=== PATIENT | female | born 1930 | race Caucasian/White ===

== ENCOUNTER 2017-03-10 01:12 | Inpatient (IN) | payer MEDICARE, MEDICAID ==
[2017-03-10] VITALS (7 sets, daily range): BP systolic 128–163; BP diastolic 74–90
[~2017-03-10] VITALS: Ht 160 cm; Wt 55.3 kg
[2017-03-10] MEDS ORDERED: CALCIUM CARBON260 MG PO (01:19)
[2017-03-10] MEDS ORDERED: ROCALTROL0.25 MCG PO (01:19)
[2017-03-10] MEDS ORDERED: CATAPRES0.1 MG TD (01:19)
[2017-03-10] MEDS ORDERED: CEFUROXIME250 MG PO (01:19)
[2017-03-10] MEDS ORDERED: PENTOXIFYLLINE400 MG ORAL (01:19)
[2017-03-10] MEDS ORDERED: MULTIVITAMINS1 EAC2 ORAL (01:19)
[2017-03-10] MEDS ORDERED: METRONIDAZOLE500 MG ORAL (01:19)
--- NOTE | 2017-03-10 01:28 | Emergency Room Report ---
History of Present Illness General Chief Complaint: Dyspnea/Respdistress Source: Medical Record Present Illness HPI This is an 86-year-old female with a history of swallowing difficulty and dementia. She was at a senior living. According to EMS, her baseline is she's confused but able to hold conversation. She was brought in for chief complaint of rest or distress. Onset tonight. According to nursing staff, she was given water and candy by her roommate. Afterward she became short of breath. No known fever or chills. No nausea no vomiting. No diarrhea. History is limited other than what was told by EMS. Allergies: Coded Allergies: ASPIRIN (Verified Allergy, Unknown, 03/10/17) IBUPROFEN (Unverified Allergy, Unknown, 03/10/17) Patient History Past Medical History: see triage record, old chart reviewed Past Surgical History: other Pertinent Family History: none Social History: Denies: smoking Last Menstrual Period: years Now: No Immunizations: other Reviewed Nursing Documentation: PMH: Agreed, PSxH: Agreed Nursing Documentation-PMH Past Medical History: No History, Except For History Of Psychiatric Problem: Yes - ALANNA MCMILLAN Review of Systems Eye: Denies: eye pain, blurred vision ENT: Denies: ear pain, nose congestion, throat swelling Respiratory: Reports: cough, shortness of breath Cardiovascular: Denies: chest pain, palpitations Gastrointestinal: Denies: abdominal pain, diarrhea, nausea, vomiting Musculoskeletal: Denies: back pain, joint pain Skin: Denies: rash Neurological: Denies: headache, numbness Endocrine: Denies: increased thirst, increased urine Hematologic/Lymphatic: Denies: easy bruising All Other Systems: negative except mentioned in HPI Physical Exam Vital Signs Date Time Temp Pulse Resp B/P (MAP) Pulse Ox O2 Delivery O2 Flow Rate FiO2 03/10/17 01:03 132 177/100 95 Non-Rebreather vitals tachycardia and hypertension. Sp02 EP Interpretation: abnormal General Appearance: moderate distress, lethargic, thin, Chronically Ill Head: normocephalic, atraumatic Eyes: bilateral eye PERRL, bilateral eye EOMI ENT: hearing grossly normal, normal pharynx Neck: full range of motion, supple, no meningismus Respiratory: chest non-tender, normal breath sounds, respiratory distress, rhonchi Cardiovascular #1: regular rate, rhythm, no murmur, tachycardia Gastrointestinal: normal bowel sounds, non tender, no mass, no organomegaly, no bruit, non-distended Musculoskeletal: back normal, normal range of motion Neurologic: grossly normal Skin: warm/dry Procedures Critical Care Time Critical Care Time Critical care is mandated in this patient who presented with sepsis from pneumonia. Patient require my urgent intervention to attenuate the risks of metabolic collapse which may lead to cardiovascular collapse and . Critical care time is 35 minutes excluding any reportable procedure. Critical care time included evaluation, multiple reevaluation, looking at old charts, interpreting laboratory and diagnostic data, discussing case with patient and family and consultants, and charting. Medical Decision Making Diagnostic Impression: Primary Impression: Sepsis Qualified Codes: A41.9 - Sepsis, unspecified organism Additional Impressions: Pneumonia Qualified Codes: J18.9 - Pneumonia, unspecified organism Respiratory failure with hypoxia Qualified Codes: J96.01 - Acute respiratory failure with hypoxia Proteinuria Qualified Codes: R80.9 - Proteinuria, unspecified ACS (acute coronary syndrome) ER Course Patient presents with acute respiratory failure secondary to pneumonia. Maybe aspiration. She require BiPAP. Mental status is much improved. She able to converse now. IV fluid antibiotics given. Her troponin is in the indeterminate zone. This is probably secondary to demand ischemia. Aspirin given. Admit. Laboratory Tests Test 03/10/17 01:15 03/10/17 01:18 03/10/17 01:28 White Blood Count 21.4 K/UL (4.8-10.8) H Red Blood Count 4.03 M/UL (4.20-5.40) L Hemoglobin 12.4 G/DL (12.0-16.0) Hematocrit 39.2 % (37.0-47.0) Mean Corpuscular Volume 97 FL (80-99) Mean Corpuscular Hemoglobin 30.8 PG (27.0-31.0) Mean Corpuscular Hemoglobin Concent 31.6 G/DL (32.0-36.0) L Red Cell Distribution Width 15.7 % (11.6-14.8) H Platelet Count 547 K/UL (150-450) H Mean Platelet Volume 5.7 FL (6.5-10.1) L Neutrophils (%) (Auto) % (45.0-75.0) Lymphocytes (%) (Auto) % (20.0-45.0) Monocytes (%) (Auto) % (1.0-10.0) Eosinophils (%) (Auto) % (0.0-3.0) Basophils (%) (Auto) % (0.0-2.0) Differential Total Cells Counted 100 Neutrophils % (Manual) 64 % (45-75) Lymphocytes % (Manual) 25 % (20-45) Monocytes % (Manual) 7 % (1-10) Eosinophils % (Manual) 1 % (0-3) Basophils % (Manual) 1 % (0-2) Band Neutrophils 2 % (0-8) Platelet Estimate Adequate Platelet Morphology Normal Red Blood Cell Morphology Normal Prothrombin Time 10.4 SEC (9.30-11.50) Prothromb Time International Ratio 1.0 (0.9-1.1) Activated Partial Thromboplast Time 32 SEC (23-33) Sodium Level 134 MMOL/L (136-145) L Potassium Level 3.7 MMOL/L (3.5-5.1) Chloride Level 103 MMOL/L (98-107) Carbon Dioxide Level 24 MMOL/L (21-32) Anion Gap 7 mmol/L (5-15) Blood Urea Nitrogen 22 mg/dL (7-18) H Creatinine 1.1 MG/DL (0.55-1.30) Estimat Glomerular Filtration Rate mL/min (>60) Glucose Level 238 MG/DL (74-106) H Calcium Level 8.6 MG/DL (8.5-10.1) Total Bilirubin 0.1 MG/DL (0.2-1.0) L Aspartate Amino Transf (AST/SGOT) 31 U/L (15-37) Alanine Aminotransferase (ALT/SGPT) 13 U/L (12-78) Alkaline Phosphatase 112 U/L (46-116) Total Creatine Kinase 33 U/L (26-308) Creatine Kinase MB 2.6 NG/ML (0.0-3.6) Creatine Kinase MB Relative Index 7.8 Troponin I 0.453 ng/mL (0.000-0.056) Total Protein 7.0 G/DL (6.4-8.2) Albumin 1.9 G/DL (3.4-5.0) L Globulin 5.1 g/dL Albumin/Globulin Ratio 0.4 (1.0-2.7) L Lactic Acid Level 1.80 mmol/L (0.66-2.22) Urine Color Yellow Urine Appearance Slightly cloudy Urine pH 5 (4.5-8.0) Urine Specific [place] 1.020 (1.005-1.035) Urine Protein 2+ (NEGATIVE) H Urine Glucose (UA) Negative (NEGATIVE) Urine Ketones Negative (NEGATIVE) Urine Occult Blood 2+ (NEGATIVE) H Urine Nitrite Negative (NEGATIVE) Urine Bilirubin Negative (NEGATIVE) Urine Urobilinogen Normal MG/DL (0.0-1.0) Urine Leukocyte Esterase 1+ (NEGATIVE) H Urine RBC 2-4 /HPF (0 - 2) H Urine WBC 0-2 /HPF (0 - 2) Urine Squamous Epithelial Cells Occasional /LPF Urine Calcium Oxalate Crystals Occasional /LPF (NONE) Urine Amorphous Sediment Few /LPF (NONE) H Urine Bacteria Few /HPF (NONE) Urine Mucus Few /LPF (NONE/OCC) H Lab Results Impression labs with elevated white count EKG Diagnostic Results Rate: tachycardiac Rhythm: other - Nonspecific ST changes Rhythm Strip Diag. Results Rhythm Strip Time: 01:28 EP Interpretation: yes Rate: 120 Rhythm: NSR Chest X-Ray Diagnostic Results Chest X-Ray Diagnostic Results : Chest X-Ray Ordered: Yes # of Views/Limited/Complete: 1 View Indication: Shortness of Breath EP Interpretation: Yes Interpretation: no pneumothorax, other - Bilateral infiltrates, right greater than left. Possible pleural effusion. Impression: Other - Pneumonia Electronically Signed by: Electronically signed by Rahul Johnston MD Last Vital Signs Date Time Temp Pulse Resp B/P (MAP) Pulse Ox O2 Delivery O2 Flow Rate FiO2 03/10/17 01:03 132 177/100 95 Non-Rebreather Status: improved Disposition: ADMITTED INPATIENT Condition: Critical RAHUL JOHNSTON M.D. Mar 10, 2017 01:28
[2017-03-10] MEDS ORDERED: Albuterol ud Inhalation HHN ONE (01:30)
[2017-03-10 01:41] LABS: APPEARANCE,URINE SLIGHTLY CLOUDY; BILIRUBIN, URINE NEGATIVE (NEGATIVE); GLUCOSE, URINE (UA) NEGATIVE (NEGATIVE); KETONES,URINE NEGATIVE (NEGATIVE); LEUKOCYTE ESTERASE ,URINE 1+ (NEGATIVE); NITRITE,URINE NEGATIVE (NEGATIVE); PH,URINE 5 (4.5-8.0); PROTEIN,URINE 2+ (NEGATIVE); UROBILINOGEN,URINE NORMAL MG/DL (0.0-1.0)
[2017-03-10 01:42] LABS: HEMATOCRIT 39.2 % (37.0-47.0); HEMOGLOBIN 12.4 G/DL (12.0-16.0); MEAN CORPUSCULAR VOLUME 97 FL (80-99); PLATELET COUNT 547 K/UL (150-450); RED BLOOD COUNT 4.03 M/UL (4.20-5.40); RED CELL DISTRIBUTION WIDTH 15.7 % (11.6-14.8); WHITE BLOOD COUNT 21.4 K/UL (4.8-10.8)
[2017-03-10 01:42] LABS: COLOR,URINE YELLOW
[2017-03-10 02:09] LABS: ALANINE AMINOTRANSFERASE 13 U/L (12-78); ALBUMIN 1.9 G/DL (3.4-5.0); ALBUMIN/GLOBULIN RATIO 0.4 (1.0-2.7); ALKALINE PHOSPHATASE 112 U/L (46-116); ANION GAP 7 mmol/L (5-15); ASPARTATE AMINO TRANSFERASE 31 U/L (15-37); BILIRUBIN,TOTAL 0.1 MG/DL (0.2-1.0); BLOOD UREA NITROGEN 22 mg/dL (7-18); CALCIUM 8.6 MG/DL (8.5-10.1); CARBON DIOXIDE 24 MMOL/L (21-32); CHLORIDE 103 MMOL/L (98-107); CKMB 2.6 NG/ML (0.0-3.6); CREATINE KINASE 33 U/L (26-308); CREATININE 1.1 MG/DL (0.55-1.30); POTASSIUM 3.7 MMOL/L (3.5-5.1); SODIUM 134 MMOL/L (136-145)
[2017-03-10] MEDS ORDERED: Piperacillin/Tazobactam 4.5 GM in NS 110 ML IVPB ONE (02:15)
[2017-03-10] MEDS ORDERED: Zosyn 4.5gm inj ONE (02:18)
[2017-03-10] MEDS ORDERED: Nitroglycerin Subl 0.4mg tab SL PRN (04:45)
[2017-03-10] MEDS ORDERED: Albuterol/Ipratropium 3ml neb HHN PRN (04:45)
[2017-03-10] MEDS ORDERED: Mylanta II UD 30ml ORAL PRN (04:45)
[2017-03-10] MEDS ORDERED: Promethazine/Codeine 5ml UD ORAL PRN (04:45)
[2017-03-10] MEDS ORDERED: Miralax 17gm pkt ORAL PRN (04:45)
[2017-03-10] MEDS ORDERED: Vancomycin 1gm/D5W 275ml IVPB SCH ×2 (06:00)
[2017-03-10] MEDS ORDERED: Vancomycin 1gm inj IVPB ONE (06:46)
[2017-03-10] MEDS ORDERED: Cefepime HCl 1 GM in D5W 55 ML IV SCH (09:00)
[2017-03-10] MEDS: Cefepime 2gm in D5W 110ml IVPB SCH (09:00)
[2017-03-10] MEDS: Heparin 5000 units/ml inj SUBQ SCH ×2 (09:30→21:12)
--- NOTE | 2017-03-10 12:01 | Diagnostic Imaging Report ---
Indication: SOB Technique: One view of the chest Comparison: none Findings: There is extensive bilateral interstitial and alveolar pulmonary parenchymal opacity diffusely. There are large bilateral pleural effusions. The heart size is difficult to assess, probably normal there is there is thoracolumbar scoliotic deformity. There is a left shoulder prosthesis. There are degenerative changes of the right shoulder. Impression: Severe bilateral diffuse mixed interstitial and alveolar pulmonary parenchymal disease. Infiltrates versus edema. Correlate with clinical findings Bilateral pleural effusions Other findings as described
--- NOTE | 2017-03-10 13:57 | Consultation ---
Consult Note Consult Note ID # [id number] GIAN PATRICIA M.D. Mar 10, 2017 13:57
--- NOTE | 2017-03-10 13:57 | Consultation ---
Consult Note Consult Note ID # [id number] GIAN PATRICIA M.D. Mar 10, 2017 13:57
--- NOTE | 2017-03-10 13:57 | Consultation ---
Consult Note Consult Note ID # [id number] GIAN PATRICIA M.D. Mar 10, 2017 13:57
--- NOTE | 2017-03-10 13:59 | History and Physical ---
History of Present Illness General Date patient seen: Mar 10, 2017 Reason for Hospitalization: Dyspnea/Respdistress Present Illness HPI 86-year-old female with a history of diastolic CHF, PVD, HTN dementia recently hospitalized at [facility] with ALOC and sepsis, [facility]. She was brought in for chief complaint of respiratory distress. According to nursing staff, she was given water and candy by her roommate. Afterward she became short of breath. No known fever or chills. No nausea no vomiting. No diarrhea. Pt was in respiratory failure in ER and was put on BIPAP and transferred to [facility] for further treatment. She is awake, comfortable and confused. Allergies: Coded Allergies: ASPIRIN (Verified Allergy, Unknown, 03/10/17) IBUPROFEN (Unverified Allergy, Unknown, 03/10/17) Medication History Scheduled Calcitriol (Rocaltrol), 0.25 MCG PO BID, (Reported) Cefuroxime Axetil* (Cefuroxime*), 250 MG PO Q12HR, (Reported) Clonidine Hcl* (Catapres*), 0.1 MG TD EVERY 6 HOURS, (Reported) Metronidazole* (Flagyl*), 500 MG ORAL EVERY 8 HOURS, (Reported) Multivitamins* (Multivitamins*), 1 TAB ORAL DAILY, (Reported) Pentoxifylline* (Trental*), 400 MG ORAL BID, (Reported) Miscellaneous Medications Calcium Carbonate (Calcium Carbonate), 200 MG PO, (Reported) Patient History Healthcare decision maker Resuscitation status Full Code Advanced Directive on File No Past Medical/Surgical History Past Medical/Surgical History: (1) Alzheimer's dementia (2) Diastolic CHF Review of Systems All Other Systems: negative except mentioned in HPI Physical Exam General Appearance: WD/WN, no apparent distress Lines, tubes and drains: peripheral HEENT: normocephalic, atraumatic Neck: non-tender, normal alignment Respiratory/Chest: chest wall non-tender, lungs clear Cardiovascular/Chest: normal peripheral pulses, normal rate Abdomen: normal bowel sounds, non tender, no mass Genitourinary/Rectal: normal genital exam, normal rectal exam Extremities: normal range of motion Neurologic: no motor/sensory deficits Last 24 Hour Vital Signs Date Time Temp Pulse Resp B/P (MAP) Pulse Ox O2 Delivery O2 Flow Rate FiO2 03/10/17 13:29 96 16 94 Full Face 90 03/10/17 12:00 90 03/10/17 12:00 97.5 84 22 135/74 97 Bi-pap 90 03/10/17 12:00 101 03/10/17 11:16 114 24 94 Full Face 90 03/10/17 09:10 108 23 100 Full Face 100 03/10/17 08:00 100 03/10/17 08:00 95.5 102 22 129/86 99 Bi-pap 100 03/10/17 08:00 108 03/10/17 07:18 10 32 100 Full Face 100 03/10/17 05:05 106 22 94 Full Face 100 03/10/17 04:00 95.0 106 22 136/74 99 Bi-pap 100 03/10/17 04:00 108 03/10/17 04:00 100 03/10/17 03:20 97.1 108 28 163/90 94 15.0 100 03/10/17 03:02 113 28 94 Full Face 100 03/10/17 03:00 108 27 155/77 97 Bi-pap 100 03/10/17 01:57 97.1 125 28 163/90 98 Bi-pap 100 03/10/17 01:55 124 26 99 Full Face 100 03/10/17 01:54 100 03/10/17 01:38 124 30 91 Non-Rebreather 15.0 100 03/10/17 01:23 124 30 97 Non-Rebreather 15.0 100 03/10/17 01:23 124 30 Non-Rebreather 15.0 100 03/10/17 01:15 132 Non-Rebreather 10.0 03/10/17 01:03 132 177/100 95 Non-Rebreather Intake and Output 03/10/17 03/11/17 19:00 07:00 Output Total 120 ml Balance -120 ml Output Urine Total 120 ml Laboratory Tests Test 03/10/17 01:15 03/10/17 01:18 03/10/17 01:28 White Blood Count 21.4 K/UL (4.8-10.8) H Red Blood Count 4.03 M/UL (4.20-5.40) L Hemoglobin 12.4 G/DL (12.0-16.0) Hematocrit 39.2 % (37.0-47.0) Mean Corpuscular Volume 97 FL (80-99) Mean Corpuscular Hemoglobin 30.8 PG (27.0-31.0) Mean Corpuscular Hemoglobin Concent 31.6 G/DL (32.0-36.0) L Red Cell Distribution Width 15.7 % (11.6-14.8) H Platelet Count 547 K/UL (150-450) H Mean Platelet Volume 5.7 FL (6.5-10.1) L Neutrophils (%) (Auto) % (45.0-75.0) Lymphocytes (%) (Auto) % (20.0-45.0) Monocytes (%) (Auto) % (1.0-10.0) Eosinophils (%) (Auto) % (0.0-3.0) Basophils (%) (Auto) % (0.0-2.0) Differential Total Cells Counted 100 Neutrophils % (Manual) 64 % (45-75) Lymphocytes % (Manual) 25 % (20-45) Monocytes % (Manual) 7 % (1-10) Eosinophils % (Manual) 1 % (0-3) Basophils % (Manual) 1 % (0-2) Band Neutrophils 2 % (0-8) Platelet Estimate Adequate Platelet Morphology Normal Red Blood Cell Morphology Normal Prothrombin Time 10.4 SEC (9.30-11.50) Prothromb Time International Ratio 1.0 (0.9-1.1) Activated Partial Thromboplast Time 32 SEC (23-33) Sodium Level 134 MMOL/L (136-145) L Potassium Level 3.7 MMOL/L (3.5-5.1) Chloride Level 103 MMOL/L (98-107) Carbon Dioxide Level 24 MMOL/L (21-32) Anion Gap 7 mmol/L (5-15) Blood Urea Nitrogen 22 mg/dL (7-18) H Creatinine 1.1 MG/DL (0.55-1.30) Estimat Glomerular Filtration Rate mL/min (>60) Glucose Level 238 MG/DL (74-106) H Calcium Level 8.6 MG/DL (8.5-10.1) Total Bilirubin 0.1 MG/DL (0.2-1.0) L Aspartate Amino Transf (AST/SGOT) 31 U/L (15-37) Alanine Aminotransferase (ALT/SGPT) 13 U/L (12-78) Alkaline Phosphatase 112 U/L (46-116) Total Creatine Kinase 33 U/L (26-308) Creatine Kinase MB 2.6 NG/ML (0.0-3.6) Creatine Kinase MB Relative Index 7.8 Troponin I 0.453 ng/mL (0.000-0.056) Total Protein 7.0 G/DL (6.4-8.2) Albumin 1.9 G/DL (3.4-5.0) L Globulin 5.1 g/dL Albumin/Globulin Ratio 0.4 (1.0-2.7) L Lactic Acid Level 1.80 mmol/L (0.66-2.22) Urine Color Yellow Urine Appearance Slightly cloudy Urine pH 5 (4.5-8.0) Urine Specific [place] 1.020 (1.005-1.035) Urine Protein 2+ (NEGATIVE) H Urine Glucose (UA) Negative (NEGATIVE) Urine Ketones Negative (NEGATIVE) Urine Occult Blood 2+ (NEGATIVE) H Urine Nitrite Negative (NEGATIVE) Urine Bilirubin Negative (NEGATIVE) Urine Urobilinogen Normal MG/DL (0.0-1.0) Urine Leukocyte Esterase 1+ (NEGATIVE) H Urine RBC 2-4 /HPF (0 - 2) H Urine WBC 0-2 /HPF (0 - 2) Urine Squamous Epithelial Cells Occasional /LPF Urine Calcium Oxalate Crystals Occasional /LPF (NONE) Urine Amorphous Sediment Few /LPF (NONE) H Urine Bacteria Few /HPF (NONE) Urine Mucus Few /LPF (NONE/OCC) H Height (Feet): 5 Height (Inches): 3.00 Weight (Pounds): 122 Medications Current Medications Medications (Trade) Dose Ordered Sig/Daysi Route PRN Reason Start Time Stop Time Status Last Admin Dose Admin Acetaminophen (Tylenol) 650 mg Q4H PRN ORAL fever 03/10/17 04:45 04/09/17 04:44 Al Hydroxide/Mg Hydroxide (Mylanta II) 30 ml Q6H PRN ORAL dyspepsia 03/10/17 04:45 04/09/17 04:44 Albuterol/ Ipratropium (Albuterol/ Ipratropium) 3 ml Q4H PRN HHN Shortness of Breath 03/10/17 04:45 03/15/17 04:44 Cefepime HCl 2 gm/ Dextrose 110 ml @ 220 mls/hr Q24H IVPB 03/10/17 09:00 03/17/17 08:59 Heparin Sodium (Porcine) (Heparin 5000 units/ml) 5,000 units EVERY 12 HOURS SUBQ 03/10/17 09:00 04/09/17 08:59 03/10/17 09:30 Nitroglycerin (Ntg) 0.4 mg Q5M PRN SL Prn Chest Pain 03/10/17 04:45 04/09/17 04:44 Ondansetron HCl (Zofran) 4 mg Q6H PRN IVP Nausea & Vomiting 03/10/17 04:45 04/09/17 04:44 Polyethylene Glycol (Miralax) 17 gm DAILYPRN PRN ORAL Constipation 03/10/17 04:45 04/09/17 04:44 Promethazine HCl/ Codeine (Phenergan with Codeine) 5 ml Q4H PRN ORAL For Cough 03/10/17 04:45 04/09/17 04:44 Temazepam (Restoril) 15 mg HSPRN PRN ORAL Insomnia 03/10/17 04:45 03/17/17 04:44 Vancomycin HCl (Vanco rx to dose) 1 ea DAILY PRN MISC Per rx protocol 03/10/17 04:45 04/09/17 04:44 Vancomycin HCl 1 gm/Dextrose 275 ml @ 183.708 mls/hr Q24H IVPB 03/10/17 06:00 03/15/17 05:59 03/10/17 06:50 Assessment/Plan Problem List: (1) Respiratory failure with hypoxia ICD Codes: J96.91 - Respiratory failure, unspecified with hypoxia SNOMED: 51361217892788513 Qualifiers: Qualified Codes: J96.01 - Acute respiratory failure with hypoxia (2) Pulmonary edema ICD Codes: J81.1 - Chronic pulmonary edema SNOMED: 43197656 (3) Pneumonia ICD Codes: J18.9 - Pneumonia, unspecified organism SNOMED: 000729213 Qualifiers: Qualified Codes: J18.9 - Pneumonia, unspecified organism (4) Diastolic CHF ICD Codes: I50.30 - Unspecified diastolic (congestive) heart failure SNOMED: 65563480, 631786129 (5) At high risk for aspiration ICD Codes: Z91.89 - Other specified personal risk factors, not elsewhere classified SNOMED: 355017251 (6) Alzheimer's dementia ICD Codes: G30.9 - Alzheimer's disease, unspecified SNOMED: 03570730 Assessment/Plan titrate bipap foster cultures IV abx as per chest PT echo cardiology to see. KD BEGUM Mar 10, 2017 13:59
[2017-03-10] MEDS ORDERED: Heparin 2000 units/Ns 1000ml INJ PRN (14:15)
[2017-03-10] MEDS ORDERED: Lidocaine 1% Plain 30 ml INJ PRN (14:15)
--- NOTE | 2017-03-10 15:12 | General Progress Note ---
Progress Note Progress Note 86 year old female with Dementia and no family needs a PICC line. there is nobody who can consent for her. KD BEGUM Mar 10, 2017 15:12
[2017-03-10] MEDS: Dyna-Hex 2% Top Sol 2oz TOPIC SCH (20:00)
--- NOTE | 2017-03-10 20:37 | Cardiology Progress Note ---
Assessment/Plan Assessment/Plan full note to be dicated on diuretic abx adn bipaap echo tds ef 40-45% Objective Last 24 Hour Vital Signs Date Time Temp Pulse Resp B/P (MAP) Pulse Ox O2 Delivery O2 Flow Rate FiO2 03/10/17 19:14 73 21 97 Full Face 90 03/10/17 17:15 64 27 100 Full Face 90 03/10/17 16:00 90 03/10/17 16:00 97.0 100 20 128/84 100 Bi-pap 90 03/10/17 16:00 102 03/10/17 15:27 98 27 96 Full Face 90 03/10/17 13:29 96 16 94 Full Face 90 03/10/17 12:00 90 03/10/17 12:00 97.5 84 22 135/74 97 Bi-pap 90 03/10/17 12:00 101 03/10/17 11:16 114 24 94 Full Face 90 03/10/17 09:10 108 23 100 Full Face 100 03/10/17 08:00 100 03/10/17 08:00 95.5 102 22 129/86 99 Bi-pap 100 03/10/17 08:00 108 03/10/17 07:18 10 32 100 Full Face 100 03/10/17 05:05 106 22 94 Full Face 100 03/10/17 04:00 95.0 106 22 136/74 99 Bi-pap 100 03/10/17 04:00 108 03/10/17 04:00 100 03/10/17 03:20 97.1 108 28 163/90 94 15.0 100 03/10/17 03:02 113 28 94 Full Face 100 03/10/17 03:00 108 27 155/77 97 Bi-pap 100 03/10/17 01:57 97.1 125 28 163/90 98 Bi-pap 100 03/10/17 01:55 124 26 99 Full Face 100 03/10/17 01:54 100 03/10/17 01:38 124 30 91 Non-Rebreather 15.0 100 03/10/17 01:23 124 30 97 Non-Rebreather 15.0 100 03/10/17 01:23 124 30 Non-Rebreather 15.0 100 03/10/17 01:15 132 Non-Rebreather 10.0 03/10/17 01:03 132 177/100 95 Non-Rebreather Intake and Output 03/10/17 03/11/17 19:00 07:00 Output Total 120 ml Balance -120 ml Output Urine Total 120 ml # Voids 2 Laboratory Tests Test 03/10/17 01:15 03/10/17 01:18 03/10/17 01:28 White Blood Count 21.4 K/UL (4.8-10.8) H Red Blood Count 4.03 M/UL (4.20-5.40) L Hemoglobin 12.4 G/DL (12.0-16.0) Hematocrit 39.2 % (37.0-47.0) Mean Corpuscular Volume 97 FL (80-99) Mean Corpuscular Hemoglobin 30.8 PG (27.0-31.0) Mean Corpuscular Hemoglobin Concent 31.6 G/DL (32.0-36.0) L Red Cell Distribution Width 15.7 % (11.6-14.8) H Platelet Count 547 K/UL (150-450) H Mean Platelet Volume 5.7 FL (6.5-10.1) L Neutrophils (%) (Auto) % (45.0-75.0) Lymphocytes (%) (Auto) % (20.0-45.0) Monocytes (%) (Auto) % (1.0-10.0) Eosinophils (%) (Auto) % (0.0-3.0) Basophils (%) (Auto) % (0.0-2.0) Differential Total Cells Counted 100 Neutrophils % (Manual) 64 % (45-75) Lymphocytes % (Manual) 25 % (20-45) Monocytes % (Manual) 7 % (1-10) Eosinophils % (Manual) 1 % (0-3) Basophils % (Manual) 1 % (0-2) Band Neutrophils 2 % (0-8) Platelet Estimate Adequate Platelet Morphology Normal Red Blood Cell Morphology Normal Prothrombin Time 10.4 SEC (9.30-11.50) Prothromb Time International Ratio 1.0 (0.9-1.1) Activated Partial Thromboplast Time 32 SEC (23-33) Sodium Level 134 MMOL/L (136-145) L Potassium Level 3.7 MMOL/L (3.5-5.1) Chloride Level 103 MMOL/L (98-107) Carbon Dioxide Level 24 MMOL/L (21-32) Anion Gap 7 mmol/L (5-15) Blood Urea Nitrogen 22 mg/dL (7-18) H Creatinine 1.1 MG/DL (0.55-1.30) Estimat Glomerular Filtration Rate mL/min (>60) Glucose Level 238 MG/DL (74-106) H Calcium Level 8.6 MG/DL (8.5-10.1) Total Bilirubin 0.1 MG/DL (0.2-1.0) L Aspartate Amino Transf (AST/SGOT) 31 U/L (15-37) Alanine Aminotransferase (ALT/SGPT) 13 U/L (12-78) Alkaline Phosphatase 112 U/L (46-116) Total Creatine Kinase 33 U/L (26-308) Creatine Kinase MB 2.6 NG/ML (0.0-3.6) Creatine Kinase MB Relative Index 7.8 Troponin I 0.453 ng/mL (0.000-0.056) Total Protein 7.0 G/DL (6.4-8.2) Albumin 1.9 G/DL (3.4-5.0) L Globulin 5.1 g/dL Albumin/Globulin Ratio 0.4 (1.0-2.7) L Lactic Acid Level 1.80 mmol/L (0.66-2.22) Urine Color Yellow Urine Appearance Slightly cloudy Urine pH 5 (4.5-8.0) Urine Specific [place] 1.020 (1.005-1.035) Urine Protein 2+ (NEGATIVE) H Urine Glucose (UA) Negative (NEGATIVE) Urine Ketones Negative (NEGATIVE) Urine Occult Blood 2+ (NEGATIVE) H Urine Nitrite Negative (NEGATIVE) Urine Bilirubin Negative (NEGATIVE) Urine Urobilinogen Normal MG/DL (0.0-1.0) Urine Leukocyte Esterase 1+ (NEGATIVE) H Urine RBC 2-4 /HPF (0 - 2) H Urine WBC 0-2 /HPF (0 - 2) Urine Squamous Epithelial Cells Occasional /LPF Urine Calcium Oxalate Crystals Occasional /LPF (NONE) Urine Amorphous Sediment Few /LPF (NONE) H Urine Bacteria Few /HPF (NONE) Urine Mucus Few /LPF (NONE/OCC) H UBALDO FLORES Mar 10, 2017 20:37
--- NOTE | 2017-03-10 22:00 | Consultation ---
DATE OF CONSULTATION: 03/10/2017 INFECTIOUS DISEASES CONSULTATION CONSULTING PHYSICIAN: Jai Workman M.D. REFERRING PHYSICIAN: Nishi Soriano M.D. REASON FOR CONSULTATION: Evaluation of the patient for possible pneumonia, antibiotic management. HISTORY OF PRESENT ILLNESS: The patient is an 86-year-old female with multiple medical problems, who was brought to this hospital due to the altered level of consciousness, confusion, and shortness of breath. The patient has been admitted to telemetry unit. He was started on BiPAP and Infectious Diseases consultation has been requested for further evaluation of the patient who is having leukocytosis with possible pneumonia and sepsis. The patient is unable to provide detailed information. Much of information was gathered through chart and speaking to staff. PAST MEDICAL HISTORY: 1. History of encephalopathy. 2. Hypertension. 3. GERD. 4. History of cystitis. 5. Osteoporosis. 6. Gout. ALLERGIES: Ibuprofen and aspirin. MEDICATIONS: Cefepime and vancomycin. FAMILY HISTORY: Not available. REVIEW OF SYSTEMS: Unobtainable. PHYSICAL EXAMINATION: VITAL SIGNS: Temperature 97.5 degrees, pulse 86, respiratory rate 18, and blood pressure 134/74. HEENT: Head, normocephalic. Mouth, no thrush, covered by BiPAP. NECK: No lymphadenopathy. CHEST: Coarse breathing sounds at bases of both lungs. HEART: S1 and S2. ABDOMEN: Soft. EXTREMITIES: No cyanosis at this time. NEUROLOGIC: Awake. LABORATORY AND DIAGNOSTIC DATA: White blood cells 21, hemoglobin 12, and platelets 547. BUN 22 and creatinine 1. Liver function tests are unremarkable. Troponin 0.463. Chest x-ray, bilateral diffuse mixed interstitial and alveolar pulmonary opacity. ASSESSMENT: 1. Leukocytosis. 2. Respiratory failure due to congestive heart failure versus pneumonia. 3. Rule out bacteremia. 4. Afebrile. PLAN: 1. We will continue the patient on vancomycin and cefepime day #1. 2. Monitor CBC. 3. Monitor BMP. 4. Monitor cultures (blood, urine, and sputum). 5. Continue respiratory support. 6. Monitor chest x-ray. 7. Based on the patient's clinical course and laboratories, we will do further recommendation. Thank you, Dr. Soriano, for allowing me to participate in the care of this patient. I will follow the patient with you during this hospitalization. Jai Workman M.D. DR: RAO JOB#: [id number] CC:
[2017-03-11] VITALS: BP 130/69
[2017-03-11 03:46] LABS: HEMATOCRIT 35.8 % (37.0-47.0); HEMOGLOBIN 11.2 G/DL (12.0-16.0); MEAN CORPUSCULAR VOLUME 98 FL (80-99); PLATELET COUNT 462 K/UL (150-450); RED BLOOD COUNT 3.65 M/UL (4.20-5.40); RED CELL DISTRIBUTION WIDTH 15.7 % (11.6-14.8)
[2017-03-11 03:52] LABS: WHITE BLOOD COUNT 33.6 K/UL (4.8-10.8)
[2017-03-11 03:53] LABS: ALANINE AMINOTRANSFERASE 12 U/L (12-78); ALBUMIN 1.7 G/DL (3.4-5.0); ALBUMIN/GLOBULIN RATIO 0.4 (1.0-2.7); ALKALINE PHOSPHATASE 80 U/L (46-116); ANION GAP 9 mmol/L (5-15); ASPARTATE AMINO TRANSFERASE 25 U/L (15-37); BILIRUBIN,TOTAL 0.2 MG/DL (0.2-1.0); BLOOD UREA NITROGEN 25 mg/dL (7-18); CALCIUM 8.8 MG/DL (8.5-10.1); CARBON DIOXIDE 23 MMOL/L (21-32); CHLORIDE 108 MMOL/L (98-107); CREATININE 1.2 MG/DL (0.55-1.30); PHOSPHORUS 4.7 MG/DL (2.5-4.9); POTASSIUM 4.9 MMOL/L (3.5-5.1); SODIUM 140 MMOL/L (136-145)
[2017-03-11 04:00] VITALS: BP 126/74
[2017-03-11] MEDS: Vancomycin 750mg/NS 250ml IVPB SCH (06:00)
[2017-03-11 08:00] VITALS: BP 126/70
[2017-03-11] MEDS: Heparin 5000 units/ml inj SUBQ SCH ×2 (09:09→20:49)
--- NOTE | 2017-03-11 10:38 | Diagnostic Imaging Report ---
Indication: DYSPNEA Technique: One view of the chest Comparison: 03/10/2017 Findings: Extensive diffuse bilateral mixed interstitial and alveolar infiltrates are again demonstrated, probably unchanged allowing for differences in rotation. Large pleural effusions are again demonstrated, unchanged. Left shoulder osseous is, thoracal lumbar scoliotic deformity is again demonstrated. Multiple old healed right rib fractures are again demonstrated. Degenerative changes of the right shoulder are again demonstrated Impression: Unchanged, over one day, findings as above.
--- NOTE | 2017-03-11 11:10 | Wound Care Consultation ---
Wound Assessment Wound Assessment #1: Wound Number: 1 Wound Present on Admission: Yes New Wound: No Status Change of Wound: No Wound Location Body Site Modif: mid Wound Location Body Site: nose - bridge Wound Type: pressure ulcer Saskia Test: Does not Saskia Pressure Ulcer Stage: Deep Tissue Injury Wound Thickness: Full Thickness Wound Length: 0.5 Wound Width: 0.5 Wound Depth: utd Percent of Wound Purple/Maroon: 100 Wound Drainage Amount: None Wound Drainage Odor: None/Absent Tissue Surrounding Wound: Intact Wound General Appearance: Reddened - purple Wound Assessment #2: Wound Number: 2 Wound Present on Admission: Yes New Wound: No Status Change of Wound: No Wound Location Body Site Modif: mid Wound Location Body Site: other - sacrococcygeal Wound Type: pressure ulcer Saskia Test: Does not Saskia Pressure Ulcer Stage: Deep Tissue Injury Wound Thickness: Full Thickness Wound Length: 5.5 Wound Width: 4.5 Wound Depth: utd Percent of Wound Purple/Maroon: 100 Wound Drainage Amount: None Wound Drainage Odor: None/Absent Tissue Surrounding Wound: Erythemic Wound General Appearance: Reddened - purple Wound Assessment #3: Wound Number: 3 Wound Present on Admission: Yes New Wound: No Status Change of Wound: No Wound Location Body Site Modif: mid, upper Wound Location Body Site: back Wound Type: pressure ulcer Saskia Test: Does not Saskia Pressure Ulcer Stage: Deep Tissue Injury - scattered Wound Thickness: Full Thickness Percent of Wound Purple/Maroon: 100 Wound Drainage Amount: None Wound Drainage Odor: None/Absent Tissue Surrounding Wound: Erythemic Wound General Appearance: Reddened - purple scattered Wound Comment #1 Mid bridge of the nose DTI pressure ulcer #2 Sacrococcygeal DTI pressure ulcer #3 Mid upper back area scattered DTI pressure ulcer Recommendation -Local wound care per protocol -Keep clean and dry -Turn and reposition -Optimize nutrition -Offload both heels -Heel protector on both heels -Low air loss SPR mattress -Assess and f/u accordingly for any changes ZION MEDELLIN RN Mar 11, 2017 11:10
[2017-03-11 12:00] VITALS: BP 139/79
--- NOTE | 2017-03-11 12:19 | Infectious Diseases Prog Note ---
Assessment/Plan Assessment/Plan A: The patient is an 86-year-old female with Leukocytosis, Leukocytosis Respiratory failure due to congestive heart failure versus pneumonia Rule out bacteremia Afebrile. ALOC , SP History of encephalopathy. Hypertension. GERD. History of cystitis. Osteoporosis. Gout PLAN: cont on vancomycin and cefepime day #2, add Levaquin d # 1 Monitor CBC. Monitor BMP. Monitor cultures (blood, urine, and sputum). Continue respiratory support. Monitor chest x-ray. U legionella Ag Subjective Allergies: Coded Allergies: ASPIRIN (Verified Allergy, Unknown, 03/10/17) IBUPROFEN (Unverified Allergy, Unknown, 03/10/17) Subjective on BiPAP Objective Vital Signs Last 24 Hour Vital Signs Date Time Temp Pulse Resp B/P (MAP) Pulse Ox O2 Delivery O2 Flow Rate FiO2 03/11/17 10:47 111 32 97 Full Face 80 03/11/17 08:58 108 35 97 Full Face 80 03/11/17 08:00 98.3 140 24 126/70 98 Bi-pap 80 03/11/17 08:00 80 03/11/17 07:31 105 03/11/17 07:03 101 27 98 Facial 80 03/11/17 05:21 120 30 94 Facial 90 03/11/17 04:00 90 03/11/17 04:00 97.5 98 19 126/74 100 Bi-pap 90 03/11/17 03:55 109 03/11/17 02:43 130 27 91 Facial 90 03/11/17 00:50 104 31 95 Full Face 90 03/11/17 00:00 90 03/11/17 00:00 98.1 115 20 130/69 100 Bi-pap 90 03/10/17 23:53 110 03/10/17 23:22 107 32 98 Full Face 90 03/10/17 20:55 103 22 96 Full Face 90 03/10/17 20:00 90 03/10/17 20:00 97.7 106 21 128/82 100 Bi-pap 100 03/10/17 19:52 106 03/10/17 19:14 73 21 97 Full Face 90 03/10/17 17:15 64 27 100 Full Face 90 03/10/17 16:00 90 03/10/17 16:00 97.0 100 20 128/84 100 Bi-pap 90 03/10/17 16:00 102 03/10/17 15:27 98 27 96 Full Face 90 03/10/17 13:29 96 16 94 Full Face 90 Height (Feet): 5 Height (Inches): 3.00 Weight (Pounds): 122 HEENT: anicteric Respiratory/Chest: normal breath sounds Cardiovascular: regular rhythm Abdomen: non distended Microbiology Date/Time Source Procedure Growth Status 03/10/17 01:25 Blood Blood Culture - Preliminary NO GROWTH AFTER 24 HOURS Resulted 03/10/17 01:15 Blood Blood Culture - Preliminary NO GROWTH AFTER 24 HOURS Resulted Laboratory Tests Test 03/11/17 03:00 White Blood Count 33.6 K/UL (4.8-10.8) #*H Red Blood Count 3.65 M/UL (4.20-5.40) L Hemoglobin 11.2 G/DL (12.0-16.0) L Hematocrit 35.8 % (37.0-47.0) L Mean Corpuscular Volume 98 FL (80-99) Mean Corpuscular Hemoglobin 30.8 PG (27.0-31.0) Mean Corpuscular Hemoglobin Concent 31.3 G/DL (32.0-36.0) L Red Cell Distribution Width 15.7 % (11.6-14.8) H Platelet Count 462 K/UL (150-450) H Mean Platelet Volume 5.8 FL (6.5-10.1) L Neutrophils (%) (Auto) % (45.0-75.0) Lymphocytes (%) (Auto) % (20.0-45.0) Monocytes (%) (Auto) % (1.0-10.0) Eosinophils (%) (Auto) % (0.0-3.0) Basophils (%) (Auto) % (0.0-2.0) Differential Total Cells Counted 100 Neutrophils % (Manual) 90 % (45-75) H Lymphocytes % (Manual) 3 % (20-45) L Monocytes % (Manual) 2 % (1-10) Eosinophils % (Manual) 0 % (0-3) Basophils % (Manual) 0 % (0-2) Band Neutrophils 5 % (0-8) Platelet Estimate Adequate Platelet Morphology Normal Red Blood Cell Morphology Normal Sodium Level 140 MMOL/L (136-145) Potassium Level 4.9 MMOL/L (3.5-5.1) Chloride Level 108 MMOL/L (98-107) H Carbon Dioxide Level 23 MMOL/L (21-32) Anion Gap 9 mmol/L (5-15) Blood Urea Nitrogen 25 mg/dL (7-18) H Creatinine 1.2 MG/DL (0.55-1.30) Estimat Glomerular Filtration Rate mL/min (>60) Glucose Level 124 MG/DL (74-106) #H Calcium Level 8.8 MG/DL (8.5-10.1) Phosphorus Level 4.7 MG/DL (2.5-4.9) Total Bilirubin 0.2 MG/DL (0.2-1.0) Aspartate Amino Transf (AST/SGOT) 25 U/L (15-37) Alanine Aminotransferase (ALT/SGPT) 12 U/L (12-78) Alkaline Phosphatase 80 U/L (46-116) Pro-B-Type Natriuretic Peptide 49476 pg/mL (0-125) H Total Protein 6.4 G/DL (6.4-8.2) Albumin 1.7 G/DL (3.4-5.0) L Globulin 4.7 g/dL Albumin/Globulin Ratio 0.4 (1.0-2.7) L Current Medications Medications (Trade) Dose Ordered Sig/Daysi Route PRN Reason Start Time Stop Time Status Last Admin Dose Admin Acetaminophen (Tylenol) 650 mg Q4H PRN ORAL fever 03/10/17 04:45 04/09/17 04:44 Al Hydroxide/Mg Hydroxide (Mylanta II) 30 ml Q6H PRN ORAL dyspepsia 03/10/17 04:45 04/09/17 04:44 Albuterol/ Ipratropium (Albuterol/ Ipratropium) 3 ml Q4H PRN HHN Shortness of Breath 03/10/17 04:45 03/15/17 04:44 Cefepime HCl 2 gm/ Dextrose 110 ml @ 220 mls/hr Q24H IVPB 03/10/17 09:00 03/17/17 08:59 Chlorhexidine Gluconate (Francisca-Hex 2%) 1 applic DAILY@2000 TOPIC 03/10/17 20:00 04/09/17 19:59 Furosemide (Lasix) 20 mg EVERY 8 HOURS IV 03/10/17 14:15 04/09/17 14:14 Heparin Sodium (Porcine) (Heparin 5000 units/ml) 5,000 units EVERY 12 HOURS SUBQ 03/10/17 09:00 04/09/17 08:59 03/11/17 09:09 Heparin Sodium/ Sodium Chloride (Heparin 2000 units/Ns 1000ml premix) 2,000 unit ONCE PRN INJ PICC PLACEMENT 03/10/17 14:15 03/11/17 23:59 Lidocaine HCl (Xylocaine 1% 30ml) 30 ml ONCE PRN INJ PICC PLACEMENT 03/10/17 14:15 03/11/17 23:59 Nitroglycerin (Ntg) 0.4 mg Q5M PRN SL Prn Chest Pain 03/10/17 04:45 04/09/17 04:44 Ondansetron HCl (Zofran) 4 mg Q6H PRN IVP Nausea & Vomiting 03/10/17 04:45 04/09/17 04:44 Polyethylene Glycol (Miralax) 17 gm DAILYPRN PRN ORAL Constipation 03/10/17 04:45 04/09/17 04:44 Promethazine HCl/ Codeine (Phenergan with Codeine) 5 ml Q4H PRN ORAL For Cough 03/10/17 04:45 04/09/17 04:44 Temazepam (Restoril) 15 mg HSPRN PRN ORAL Insomnia 03/10/17 04:45 03/17/17 04:44 Vancomycin HCl (Vanco rx to dose) 1 ea DAILY PRN MISC Per rx protocol 03/10/17 04:45 04/09/17 04:44 Vancomycin/Sodium Chloride 250 ml @ 166.667 mls/hr Q24H IVPB 03/11/17 06:00 03/16/17 05:59 GIAN PATRICIA M.D. Mar 11, 2017 12:19
--- NOTE | 2017-03-11 13:21 | Pulmonology Progress Note ---
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 Subjective Interval Events: pt refusing the PICC line Allergies: Coded Allergies: ASPIRIN (Verified Allergy, Unknown, 03/10/17) IBUPROFEN (Unverified Allergy, Unknown, 03/10/17) Objective Last 24 Hour Vital Signs Date Time Temp Pulse Resp B/P (MAP) Pulse Ox O2 Delivery O2 Flow Rate FiO2 03/11/17 12:00 97.2 112 24 139/79 92 Bi-pap 80 03/11/17 12:00 80 03/11/17 10:47 111 32 97 Full Face 80 03/11/17 08:58 108 35 97 Full Face 80 03/11/17 08:00 98.3 140 24 126/70 98 Bi-pap 80 03/11/17 08:00 80 03/11/17 07:31 105 03/11/17 07:03 101 27 98 Facial 80 03/11/17 05:21 120 30 94 Facial 90 03/11/17 04:00 90 03/11/17 04:00 97.5 98 19 126/74 100 Bi-pap 90 03/11/17 03:55 109 03/11/17 02:43 130 27 91 Facial 90 03/11/17 00:50 104 31 95 Full Face 90 03/11/17 00:00 90 03/11/17 00:00 98.1 115 20 130/69 100 Bi-pap 90 03/10/17 23:53 110 03/10/17 23:22 107 32 98 Full Face 90 03/10/17 20:55 103 22 96 Full Face 90 03/10/17 20:00 90 03/10/17 20:00 97.7 106 21 128/82 100 Bi-pap 100 03/10/17 19:52 106 03/10/17 19:14 73 21 97 Full Face 90 03/10/17 17:15 64 27 100 Full Face 90 03/10/17 16:00 90 03/10/17 16:00 97.0 100 20 128/84 100 Bi-pap 90 03/10/17 16:00 102 03/10/17 15:27 98 27 96 Full Face 90 03/10/17 13:29 96 16 94 Full Face 90 Objective still on BIPAP General Appearance: no acute distress, cachetic HEENT: normocephalic Respiratory/Chest: chest wall non-tender, lungs clear Cardiovascular: normal peripheral pulses, normal rate Genitourinary: normal external genitalia Extremities: no cyanosis Skin: no lesions 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 Lymphatic: no neck adenopathy Microbiology Date/Time Source Procedure Growth Status 03/10/17 01:25 Blood Blood Culture - Preliminary NO GROWTH AFTER 24 HOURS Resulted 03/10/17 01:15 Blood Blood Culture - Preliminary NO GROWTH AFTER 24 HOURS Resulted Laboratory Tests 03/11/17 03:00: White Blood Count 33.6#*H, Red Blood Count 3.65L, Hemoglobin 11.2L, Hematocrit 35.8L, Mean Corpuscular Volume 98, Mean Corpuscular Hemoglobin 30.8, Mean Corpuscular Hemoglobin Concent 31.3L, Red Cell Distribution Width 15.7H, Platelet Count 462H, Mean Platelet Volume 5.8L, Neutrophils (%) (Auto) , Lymphocytes (%) (Auto) , Monocytes (%) (Auto) , Eosinophils (%) (Auto) , Basophils (%) (Auto) , Differential Total Cells Counted 100, Neutrophils % ( Manual) 90H, Lymphocytes % (Manual) 3L, Monocytes % (Manual) 2, Eosinophils % ( Manual) 0, Basophils % (Manual) 0, Band Neutrophils 5, Platelet Estimate Adequate, Platelet Morphology Normal, Red Blood Cell Morphology Normal, Sodium Level 140, Potassium Level 4.9, Chloride Level 108H, Carbon Dioxide Level 23, Anion Gap 9, Blood Urea Nitrogen 25H, Creatinine 1.2, Estimat Glomerular Filtration Rate , Glucose Level 124#H, Calcium Level 8.8, Phosphorus Level 4.7, Total Bilirubin 0.2, Aspartate Amino Transf (AST/SGOT) 25, Alanine Aminotransferase (ALT/SGPT) 12, Alkaline Phosphatase 80, Pro-B-Type Natriuretic Peptide 99254L, Total Protein 6.4, Albumin 1.7L, Globulin 4.7, Albumin/Globulin Ratio 0.4L Current Medications Medications (Trade) Dose Ordered Sig/Daysi Route PRN Reason Start Time Stop Time Status Last Admin Dose Admin Acetaminophen (Tylenol) 650 mg Q4H PRN ORAL fever 03/10/17 04:45 04/09/17 04:44 Al Hydroxide/Mg Hydroxide (Mylanta II) 30 ml Q6H PRN ORAL dyspepsia 03/10/17 04:45 04/09/17 04:44 Albuterol/ Ipratropium (Albuterol/ Ipratropium) 3 ml Q4H PRN HHN Shortness of Breath 03/10/17 04:45 03/15/17 04:44 Cefepime HCl 2 gm/ Dextrose 110 ml @ 220 mls/hr Q24H IVPB 03/10/17 09:00 03/17/17 08:59 Chlorhexidine Gluconate (Francisca-Hex 2%) 1 applic DAILY@2000 TOPIC 03/10/17 20:00 04/09/17 19:59 Furosemide (Lasix) 20 mg EVERY 8 HOURS IV 03/10/17 14:15 04/09/17 14:14 Heparin Sodium (Porcine) (Heparin 5000 units/ml) 5,000 units EVERY 12 HOURS SUBQ 03/10/17 09:00 04/09/17 08:59 03/11/17 09:09 Heparin Sodium/ Sodium Chloride (Heparin 2000 units/Ns 1000ml premix) 2,000 unit ONCE PRN INJ PICC PLACEMENT 03/10/17 14:15 03/11/17 23:59 Lidocaine HCl (Xylocaine 1% 30ml) 30 ml ONCE PRN INJ PICC PLACEMENT 03/10/17 14:15 03/11/17 23:59 Nitroglycerin (Ntg) 0.4 mg Q5M PRN SL Prn Chest Pain 03/10/17 04:45 04/09/17 04:44 Ondansetron HCl (Zofran) 4 mg Q6H PRN IVP Nausea & Vomiting 03/10/17 04:45 04/09/17 04:44 Polyethylene Glycol (Miralax) 17 gm DAILYPRN PRN ORAL Constipation 03/10/17 04:45 04/09/17 04:44 Promethazine HCl/ Codeine (Phenergan with Codeine) 5 ml Q4H PRN ORAL For Cough 03/10/17 04:45 04/09/17 04:44 Temazepam (Restoril) 15 mg HSPRN PRN ORAL Insomnia 03/10/17 04:45 03/17/17 04:44 Vancomycin HCl (Vanco rx to dose) 1 ea DAILY PRN MISC Per rx protocol 03/10/17 04:45 04/09/17 04:44 Vancomycin/Sodium Chloride 250 ml @ 166.667 mls/hr Q24H IVPB 03/11/17 06:00 03/16/17 05:59 KD BEGUM Mar 11, 2017 13:21
--- NOTE | 2017-03-11 13:29 | Cardiology Report ---
APPROVED REPORT EKG Measurement Heart [id number] 142P52 [id number] Sinus tachycardia with premature supraventricular complexes Possible Left atrial enlargement Low voltage QRS Cannot rule out Anterior infarct, age undetermined Abnormal ECG
--- NOTE | 2017-03-11 13:29 | Cardiology Report ---
APPROVED REPORT EKG Measurement Heart [id number] 142P52 [id number] Sinus tachycardia with premature supraventricular complexes Possible Left atrial enlargement Low voltage QRS Cannot rule out Anterior infarct, age undetermined Abnormal ECG
--- NOTE | 2017-03-11 13:29 | Cardiology Report ---
APPROVED REPORT EKG Measurement Heart [id number] 142P52 [id number] Sinus tachycardia with premature supraventricular complexes Possible Left atrial enlargement Low voltage QRS Cannot rule out Anterior infarct, age undetermined Abnormal ECG
--- NOTE | 2017-03-11 13:59 | Cardiology Report ---
APPROVED REPORT EXAM: Two-dimensional and M-mode echocardiogram with Doppler and color Doppler. INDICATION Arrhythmia Normal left ventricular chamber size. Global left ventricular hypokinesis. Left ventricular ejection fraction estimated to be at least mildly decreased (-40 %). Study quality precludes accurate assessment of regional wall motion. Moderate left ventricular hypertrophy by 2-D. No evidence of pericardial effusion. All other cardiac chamber sizes are within normal limits. Moderate focal aortic valve sclerosis with adequate cusp excursion. Thickened mitral valve leaflets with normal excursion. Mitral annulus and aortic root calcification. Pulmonic valve not well visualized. Normal tricuspid valve structure. IVC at normal size with physiologic collapse. A color flow and spectral Doppler study was performed and revealed: Mild mitral regurgitation. Mitral diastolic velocities suggest reduced left ventricular relaxation c/w mild LV diastolic dysfunction (Grade I). Trace to mild tricuspid regurgitation. Tricuspid systolic velocities suggests peak right ventricular systolic pressure of 25 mmHg.
[2017-03-11] MEDS ORDERED: NS 275ml ONE (15:30)
[2017-03-11] MEDS ORDERED: Tubing IV Secondary IV ONE (15:30)
--- NOTE | 2017-03-11 15:42 | Diagnostic Imaging Report ---
Complete Indications: Needs long-term IV access Technique: Procedure performed at bedside. Procedural timeout performed. Ultrasound confirms patent compressible right brachial vein. Total sterile technique, including sterile probe cover and sterile gel, sterile gloves, hand hygiene, hat, mask,, sterile gown, large sterile drape, and preparation with 2% chlorhexidine utilized. Local anesthesia with 1% lidocaine. Under real-time ultrasound guidance, puncture brachial vein using 21-gauge needle, passage 0.018 guidewire, exchange for 5 Romanian peel-away sheath. 5 Romanian Bard dual-lumen power PICC cut to 31 cm. It was inserted through the peel-away sheath. Peel-away sheath and guidewire removed. Catheter fixed to the skin. Both catheter ports aspirated and flushed. Patient tolerated procedure well, without immediate complication. Followup chest x-ray obtained, documents catheter tip position at the mid superior vena cava Impression: Successful bedside placement of right arm PICC under sonographic guidance, as described above.
[2017-03-11 16:00] VITALS: BP 139/84
[2017-03-11] MEDS ORDERED: Vancomycin 750mg/NS 250ml IVPB SCH (16:00)
[2017-03-11] MEDS: Cefepime 2gm in D5W 110ml IVPB SCH (16:15)
--- NOTE | 2017-03-11 18:55 | Cardiology Progress Note ---
Assessment/Plan Assessment/Plan systolic adn diastolic heart failure pleural effusion diuretic bipapa support repet trop repat ekg [id number] Objective Last 24 Hour Vital Signs Date Time Temp Pulse Resp B/P (MAP) Pulse Ox O2 Delivery O2 Flow Rate FiO2 03/11/17 17:07 107 20 10 Full Face 80 03/11/17 16:35 111 03/11/17 16:00 80 03/11/17 16:00 98.4 126 24 139/84 97 Bi-pap 80 03/11/17 15:49 116 24 100 Full Face 80 03/11/17 13:36 108 32 95 Full Face 80 03/11/17 12:00 97.2 112 24 139/79 92 Bi-pap 80 03/11/17 12:00 80 03/11/17 11:44 108 03/11/17 10:47 111 32 97 Full Face 80 03/11/17 08:58 108 35 97 Full Face 80 03/11/17 08:00 98.3 140 24 126/70 98 Bi-pap 80 03/11/17 08:00 80 03/11/17 07:31 105 03/11/17 07:03 101 27 98 Facial 80 03/11/17 05:21 120 30 94 Facial 90 03/11/17 04:00 90 03/11/17 04:00 97.5 98 19 126/74 100 Bi-pap 90 03/11/17 03:55 109 03/11/17 02:43 130 27 91 Facial 90 03/11/17 00:50 104 31 95 Full Face 90 03/11/17 00:00 90 03/11/17 00:00 98.1 115 20 130/69 100 Bi-pap 90 03/10/17 23:53 110 03/10/17 23:22 107 32 98 Full Face 90 03/10/17 20:55 103 22 96 Full Face 90 03/10/17 20:00 90 03/10/17 20:00 97.7 106 21 128/82 100 Bi-pap 100 03/10/17 19:52 106 03/10/17 19:14 73 21 97 Full Face 90 Intake and Output 03/11/17 03/12/17 19:00 07:00 # Voids 1 Laboratory Tests Test 03/11/17 03:00 03/11/17 13:20 White Blood Count 33.6 K/UL (4.8-10.8) #*H Red Blood Count 3.65 M/UL (4.20-5.40) L Hemoglobin 11.2 G/DL (12.0-16.0) L Hematocrit 35.8 % (37.0-47.0) L Mean Corpuscular Volume 98 FL (80-99) Mean Corpuscular Hemoglobin 30.8 PG (27.0-31.0) Mean Corpuscular Hemoglobin Concent 31.3 G/DL (32.0-36.0) L Red Cell Distribution Width 15.7 % (11.6-14.8) H Platelet Count 462 K/UL (150-450) H Mean Platelet Volume 5.8 FL (6.5-10.1) L Neutrophils (%) (Auto) % (45.0-75.0) Lymphocytes (%) (Auto) % (20.0-45.0) Monocytes (%) (Auto) % (1.0-10.0) Eosinophils (%) (Auto) % (0.0-3.0) Basophils (%) (Auto) % (0.0-2.0) Differential Total Cells Counted 100 Neutrophils % (Manual) 90 % (45-75) H Lymphocytes % (Manual) 3 % (20-45) L Monocytes % (Manual) 2 % (1-10) Eosinophils % (Manual) 0 % (0-3) Basophils % (Manual) 0 % (0-2) Band Neutrophils 5 % (0-8) Platelet Estimate Adequate Platelet Morphology Normal Red Blood Cell Morphology Normal Sodium Level 140 MMOL/L (136-145) Potassium Level 4.9 MMOL/L (3.5-5.1) Chloride Level 108 MMOL/L (98-107) H Carbon Dioxide Level 23 MMOL/L (21-32) Anion Gap 9 mmol/L (5-15) Blood Urea Nitrogen 25 mg/dL (7-18) H Creatinine 1.2 MG/DL (0.55-1.30) Estimat Glomerular Filtration Rate mL/min (>60) Glucose Level 124 MG/DL (74-106) #H Calcium Level 8.8 MG/DL (8.5-10.1) Phosphorus Level 4.7 MG/DL (2.5-4.9) Total Bilirubin 0.2 MG/DL (0.2-1.0) Aspartate Amino Transf (AST/SGOT) 25 U/L (15-37) Alanine Aminotransferase (ALT/SGPT) 12 U/L (12-78) Alkaline Phosphatase 80 U/L (46-116) Pro-B-Type Natriuretic Peptide 32154 pg/mL (0-125) H Total Protein 6.4 G/DL (6.4-8.2) Albumin 1.7 G/DL (3.4-5.0) L Globulin 4.7 g/dL Albumin/Globulin Ratio 0.4 (1.0-2.7) L Legionella pneumophila Group 1 Ab Pending Legionella pneumophilia IgM Group 1 Pending Microbiology Date/Time Source Procedure Growth Status 03/10/17 01:25 Blood Blood Culture - Preliminary NO GROWTH AFTER 24 HOURS Resulted 03/10/17 01:15 Blood Blood Culture - Preliminary NO GROWTH AFTER 24 HOURS Resulted UBALDO FLORES Mar 11, 2017 18:55
[2017-03-11 19:59] VITALS: BP 129/82
[2017-03-11] MEDS: Dyna-Hex 2% Top Sol 2oz TOPIC SCH (20:47)
--- NOTE | 2017-03-11 23:36 | Consultation ---
History of Present Illness General Chief Complaint: Dyspnea/Respdistress Present Illness HPI 86-year-old female with multiple medical problems, who was brought to this hospital due to the altered level of consciousness, confusion, and shortness of breath. During the eval the pt was illogical and was unable to understand and process information rationally. the pt has cognitive impairment. the pt lacks capacity Allergies: Coded Allergies: ASPIRIN (Verified Allergy, Unknown, 03/10/17) IBUPROFEN (Unverified Allergy, Unknown, 03/10/17) Medication History Scheduled Calcitriol (Rocaltrol), 0.25 MCG PO BID, (Reported) Cefuroxime Axetil* (Cefuroxime*), 250 MG PO Q12HR, (Reported) Clonidine Hcl* (Catapres*), 0.1 MG TD EVERY 6 HOURS, (Reported) Metronidazole* (Flagyl*), 500 MG ORAL EVERY 8 HOURS, (Reported) Multivitamins* (Multivitamins*), 1 TAB ORAL DAILY, (Reported) Pentoxifylline* (Trental*), 400 MG ORAL BID, (Reported) Miscellaneous Medications Calcium Carbonate (Calcium Carbonate), 200 MG PO, (Reported) Patient History History Provided By: Patient, Medical Record, PMD Healthcare decision maker Resuscitation status Full Code Advanced Directive on File No Past Medical/Surgical History Past Medical/Surgical History: (1) Proteinuria (2) ACS (acute coronary syndrome) (3) Respiratory failure with hypoxia (4) Sepsis (5) Alzheimer's dementia (6) Diastolic CHF (7) Pulmonary edema (8) Pneumonia (9) At high risk for aspiration Review of Systems Psychiatric: Reports: prior hx, anxiety, depressed feelings, emotional problems Physical Exam General Appearance: no apparent distress, alert, confused Last 24 Hour Vital Signs Date Time Temp Pulse Resp B/P (MAP) Pulse Ox O2 Delivery O2 Flow Rate FiO2 03/11/17 22:54 117 16 99 Full Face 70 03/11/17 21:30 113 20 98 Full Face 80 03/11/17 20:00 80 03/11/17 19:59 98.3 120 15 129/82 99 Bi-pap 03/11/17 19:16 109 19 99 Full Face 80 03/11/17 19:16 140 03/11/17 17:07 107 20 10 Full Face 80 03/11/17 16:35 111 03/11/17 16:00 80 03/11/17 16:00 98.4 126 24 139/84 97 Bi-pap 80 03/11/17 15:49 116 24 100 Full Face 80 03/11/17 13:36 108 32 95 Full Face 80 03/11/17 12:00 97.2 112 24 139/79 92 Bi-pap 80 03/11/17 12:00 80 03/11/17 11:44 108 03/11/17 10:47 111 32 97 Full Face 80 03/11/17 08:58 108 35 97 Full Face 80 03/11/17 08:00 98.3 140 24 126/70 98 Bi-pap 80 03/11/17 08:00 80 03/11/17 07:31 105 03/11/17 07:03 101 27 98 Facial 80 03/11/17 05:21 120 30 94 Facial 90 03/11/17 04:00 90 03/11/17 04:00 97.5 98 19 126/74 100 Bi-pap 90 03/11/17 03:55 109 03/11/17 02:43 130 27 91 Facial 90 03/11/17 00:50 104 31 95 Full Face 90 03/11/17 00:00 90 03/11/17 00:00 98.1 115 20 130/69 100 Bi-pap 90 03/10/17 23:53 110 Intake and Output 03/11/17 03/12/17 19:00 07:00 Intake Total 110 ml Balance 110 ml Intake IV Total 110 ml # Voids 1 Laboratory Tests Test 03/11/17 03:00 03/11/17 13:20 White Blood Count 33.6 K/UL (4.8-10.8) #*H Red Blood Count 3.65 M/UL (4.20-5.40) L Hemoglobin 11.2 G/DL (12.0-16.0) L Hematocrit 35.8 % (37.0-47.0) L Mean Corpuscular Volume 98 FL (80-99) Mean Corpuscular Hemoglobin 30.8 PG (27.0-31.0) Mean Corpuscular Hemoglobin Concent 31.3 G/DL (32.0-36.0) L Red Cell Distribution Width 15.7 % (11.6-14.8) H Platelet Count 462 K/UL (150-450) H Mean Platelet Volume 5.8 FL (6.5-10.1) L Neutrophils (%) (Auto) % (45.0-75.0) Lymphocytes (%) (Auto) % (20.0-45.0) Monocytes (%) (Auto) % (1.0-10.0) Eosinophils (%) (Auto) % (0.0-3.0) Basophils (%) (Auto) % (0.0-2.0) Differential Total Cells Counted 100 Neutrophils % (Manual) 90 % (45-75) H Lymphocytes % (Manual) 3 % (20-45) L Monocytes % (Manual) 2 % (1-10) Eosinophils % (Manual) 0 % (0-3) Basophils % (Manual) 0 % (0-2) Band Neutrophils 5 % (0-8) Platelet Estimate Adequate Platelet Morphology Normal Red Blood Cell Morphology Normal Sodium Level 140 MMOL/L (136-145) Potassium Level 4.9 MMOL/L (3.5-5.1) Chloride Level 108 MMOL/L (98-107) H Carbon Dioxide Level 23 MMOL/L (21-32) Anion Gap 9 mmol/L (5-15) Blood Urea Nitrogen 25 mg/dL (7-18) H Creatinine 1.2 MG/DL (0.55-1.30) Estimat Glomerular Filtration Rate mL/min (>60) Glucose Level 124 MG/DL (74-106) #H Calcium Level 8.8 MG/DL (8.5-10.1) Phosphorus Level 4.7 MG/DL (2.5-4.9) Total Bilirubin 0.2 MG/DL (0.2-1.0) Aspartate Amino Transf (AST/SGOT) 25 U/L (15-37) Alanine Aminotransferase (ALT/SGPT) 12 U/L (12-78) Alkaline Phosphatase 80 U/L (46-116) Pro-B-Type Natriuretic Peptide 83101 pg/mL (0-125) H Total Protein 6.4 G/DL (6.4-8.2) Albumin 1.7 G/DL (3.4-5.0) L Globulin 4.7 g/dL Albumin/Globulin Ratio 0.4 (1.0-2.7) L Legionella pneumophila Group 1 Ab Pending Legionella pneumophilia IgM Group 1 Pending Height (Feet): 5 Height (Inches): 3.00 Weight (Pounds): 122 Medications Current Medications Medications (Trade) Dose Ordered Sig/Daysi Route PRN Reason Start Time Stop Time Status Last Admin Dose Admin Acetaminophen (Tylenol) 650 mg Q4H PRN ORAL fever 03/10/17 04:45 04/09/17 04:44 Al Hydroxide/Mg Hydroxide (Mylanta II) 30 ml Q6H PRN ORAL dyspepsia 03/10/17 04:45 04/09/17 04:44 Albuterol/ Ipratropium (Albuterol/ Ipratropium) 3 ml Q4H PRN HHN Shortness of Breath 03/10/17 04:45 03/15/17 04:44 Cefepime HCl 2 gm/ Dextrose 110 ml @ 220 mls/hr Q24H IVPB 03/10/17 09:00 03/17/17 08:59 03/11/17 16:15 Chlorhexidine Gluconate (Francisca-Hex 2%) 1 applic DAILY@2000 TOPIC 03/10/17 20:00 04/09/17 19:59 03/11/17 20:47 Furosemide (Lasix) 20 mg EVERY 8 HOURS IV 03/10/17 14:15 04/09/17 14:14 03/11/17 21:45 Heparin Sodium (Porcine) (Heparin 5000 units/ml) 5,000 units EVERY 12 HOURS SUBQ 03/10/17 09:00 04/09/17 08:59 03/11/17 20:49 Heparin Sodium/ Sodium Chloride (Heparin 2000 units/Ns 1000ml premix) 2,000 unit ONCE PRN INJ PICC PLACEMENT 03/10/17 14:15 03/11/17 23:59 Levofloxacin 50 ml @ 50 mls/hr Q24H IVPB 03/12/17 15:00 03/19/17 14:59 Lidocaine HCl (Xylocaine 1% 30ml) 30 ml ONCE PRN INJ PICC PLACEMENT 03/10/17 14:15 03/11/17 23:59 Nitroglycerin (Ntg) 0.4 mg Q5M PRN SL Prn Chest Pain 03/10/17 04:45 04/09/17 04:44 Ondansetron HCl (Zofran) 4 mg Q6H PRN IVP Nausea & Vomiting 03/10/17 04:45 04/09/17 04:44 Polyethylene Glycol (Miralax) 17 gm DAILYPRN PRN ORAL Constipation 03/10/17 04:45 04/09/17 04:44 Promethazine HCl/ Codeine (Phenergan with Codeine) 5 ml Q4H PRN ORAL For Cough 03/10/17 04:45 04/09/17 04:44 Temazepam (Restoril) 15 mg HSPRN PRN ORAL Insomnia 03/10/17 04:45 03/17/17 04:44 03/11/17 21:12 Vancomycin HCl (Vanco rx to dose) 1 ea DAILY PRN MISC Per rx protocol 03/10/17 04:45 04/09/17 04:44 Vancomycin/Sodium Chloride 250 ml @ 166.667 mls/hr Q24H IVPB 03/11/17 06:00 03/16/17 05:59 Assessment/Plan Status: stable Assessment/Plan the pt lacks capacity mimi of alma should make decisions Mike Magana M.D. Mar 11, 2017 23:36
[2017-03-12] VITALS: BP 157/45
[2017-03-12 04:00] VITALS: BP 150/77
[2017-03-12] MEDS: Vancomycin 750mg/NS 250ml IVPB SCH (05:41)
--- NOTE | 2017-03-12 07:49 | Pulmonology Progress Note ---
Assessment/Plan Assessment/Plan ASSESSMENT acute hypoxemic respiratory failure requiring BiPAP ( due to CHF and PNA) systolic and diastolic heart failure leukocytosis, probably sepsis likely PNA cardiomyopathy elevated troponin high aspiration risk HTN advanced dementia multiple DTI POA PLAN OF CARE CHRISTOPHER Bipap and titrate settings as needed, pulmonary toilet : CPT and HHN abx ID follows blood cx preliminary negative a/tussive prn swallow eval NPO for now venous Duplex BLE DVT prophylaxis cardio follows ECHO with EF 40% and RVSP of 25 minimally elevated troponin -per cardio management BP management, normotensive diuretic monitor renal parameters lytes, I/O fup with CXR and pro BNP DVT prophylaxis Bowel regimen wound care as per wound nurse recommendation seen and evaluated by psych and deemed to lack capacity to make informed decision case discussed and evaluated by supervising physician Subjective Allergies: Coded Allergies: ASPIRIN (Verified Allergy, Unknown, 03/10/17) IBUPROFEN (Unverified Allergy, Unknown, 03/10/17) Subjective still on BiPAP still significant leukocytosis but trending down minimally elevated troponin persist with small trend up last night A fib with RVR Objective Last 24 Hour Vital Signs Date Time Temp Pulse Resp B/P (MAP) Pulse Ox O2 Delivery O2 Flow Rate FiO2 03/12/17 05:05 115 27 96 Full Face 70 03/12/17 04:00 98.0 126 24 150/77 97 Bi-pap 70 03/12/17 04:00 70 03/12/17 03:50 126 03/12/17 03:05 91 26 97 Full Face 70 03/12/17 00:37 111 16 98 Full Face 70 03/12/17 00:00 119 03/12/17 00:00 98.1 100 14 157/45 100 Bi-pap 03/12/17 00:00 80 03/11/17 22:54 117 16 99 Full Face 70 03/11/17 21:30 113 20 98 Full Face 80 03/11/17 20:00 80 03/11/17 19:59 98.3 120 15 129/82 99 Bi-pap 03/11/17 19:16 109 19 99 Full Face 80 03/11/17 19:16 140 03/11/17 17:07 107 20 10 Full Face 80 03/11/17 16:35 111 03/11/17 16:00 80 03/11/17 16:00 98.4 126 24 139/84 97 Bi-pap 80 03/11/17 15:49 116 24 100 Full Face 80 03/11/17 13:36 108 32 95 Full Face 80 03/11/17 12:00 97.2 112 24 139/79 92 Bi-pap 80 03/11/17 12:00 80 03/11/17 11:44 108 03/11/17 10:47 111 32 97 Full Face 80 03/11/17 08:58 108 35 97 Full Face 80 03/11/17 08:00 98.3 140 24 126/70 98 Bi-pap 80 03/11/17 08:00 80 General Appearance: no acute distress, other - elderly, frail, bedridden female HEENT: normocephalic, atraumatic, other - BiPAP mask on BiPAP15/5 with FiO2 60% Respiratory/Chest: no respiratory distress, decreased breath sounds Cardiovascular: regular rhythm, tachycardia, other - PICC RUE intact Abdomen: soft, non tender Extremities: no edema Neurologic/Psychiatric: abnormal gait - bedridden , other - letahrgic Musculoskeletal: atrophy - BLE Microbiology Date/Time Source Procedure Growth Status 03/10/17 01:25 Blood Blood Culture - Preliminary NO GROWTH AFTER 48 HOURS Resulted 03/10/17 01:15 Blood Blood Culture - Preliminary NO GROWTH AFTER 48 HOURS Resulted 03/10/17 01:20 Nasal Nares MRSA Culture - Final NO METHICILLIN RESISTANT STAPH AUREUS... Complete Laboratory Tests 03/11/17 13:20: Legionella pneumophila Group 1 Ab [Pending], Legionella pneumophilia IgM Group 1 [Pending] Current Medications Medications (Trade) Dose Ordered Sig/Daysi Route PRN Reason Start Time Stop Time Status Last Admin Dose Admin Acetaminophen (Tylenol) 650 mg Q4H PRN ORAL fever 03/10/17 04:45 04/09/17 04:44 Al Hydroxide/Mg Hydroxide (Mylanta II) 30 ml Q6H PRN ORAL dyspepsia 03/10/17 04:45 04/09/17 04:44 Albuterol/ Ipratropium (Albuterol/ Ipratropium) 3 ml Q4H PRN HHN Shortness of Breath 03/10/17 04:45 03/15/17 04:44 Cefepime HCl 2 gm/ Dextrose 110 ml @ 220 mls/hr Q24H IVPB 03/10/17 09:00 03/17/17 08:59 03/11/17 16:15 Chlorhexidine Gluconate (Francisca-Hex 2%) 1 applic DAILY@2000 TOPIC 03/10/17 20:00 04/09/17 19:59 03/11/17 20:47 Furosemide (Lasix) 20 mg EVERY 8 HOURS IV 03/10/17 14:15 04/09/17 14:14 03/12/17 05:40 Heparin Sodium (Porcine) (Heparin 5000 units/ml) 5,000 units EVERY 12 HOURS SUBQ 03/10/17 09:00 04/09/17 08:59 03/11/17 20:49 Levofloxacin 50 ml @ 50 mls/hr Q24H IVPB 03/12/17 15:00 03/19/17 14:59 Nitroglycerin (Ntg) 0.4 mg Q5M PRN SL Prn Chest Pain 03/10/17 04:45 04/09/17 04:44 Ondansetron HCl (Zofran) 4 mg Q6H PRN IVP Nausea & Vomiting 03/10/17 04:45 04/09/17 04:44 Polyethylene Glycol (Miralax) 17 gm DAILYPRN PRN ORAL Constipation 03/10/17 04:45 04/09/17 04:44 Promethazine HCl/ Codeine (Phenergan with Codeine) 5 ml Q4H PRN ORAL For Cough 03/10/17 04:45 04/09/17 04:44 Temazepam (Restoril) 15 mg HSPRN PRN ORAL Insomnia 03/10/17 04:45 03/17/17 04:44 03/11/17 21:12 Vancomycin HCl (Vanco rx to dose) 1 ea DAILY PRN MISC Per rx protocol 03/10/17 04:45 04/09/17 04:44 Vancomycin/Sodium Chloride 250 ml @ 166.667 mls/hr Q24H IVPB 03/11/17 06:00 03/16/17 05:59 03/12/17 05:41 Carmenza Montes De Oca NP ([facility]) Mar 12, 2017 07:49
[2017-03-12 08:00] VITALS: BP 126/80
[2017-03-12 08:03] LABS: HEMATOCRIT 35.6 % (37.0-47.0); HEMOGLOBIN 11.3 G/DL (12.0-16.0); MEAN CORPUSCULAR VOLUME 98 FL (80-99); PLATELET COUNT 430 K/UL (150-450); RED BLOOD COUNT 3.64 M/UL (4.20-5.40); RED CELL DISTRIBUTION WIDTH 15.8 % (11.6-14.8)
[2017-03-12 08:37] LABS: ANION GAP 10 mmol/L (5-15); BLOOD UREA NITROGEN 29 mg/dL (7-18); CALCIUM 8.8 MG/DL (8.5-10.1); CARBON DIOXIDE 23 MMOL/L (21-32); CHLORIDE 107 MMOL/L (98-107); CREATININE 1.1 MG/DL (0.55-1.30); POTASSIUM 3.4 MMOL/L (3.5-5.1); SODIUM 140 MMOL/L (136-145)
[2017-03-12] MEDS: Cefepime 2gm in D5W 110ml IVPB SCH (09:49)
[2017-03-12] MEDS: Heparin 5000 units/ml inj SUBQ SCH ×2 (10:11→22:31)
[2017-03-12 12:00] VITALS: BP 122/66
--- NOTE | 2017-03-12 13:35 | Infectious Diseases Prog Note ---
Assessment/Plan Assessment/Plan A: The patient is an 86-year-old female with Leukocytosis, improved Respiratory failure due to congestive heart failure versus pneumonia Rule out bacteremia Afebrile. EF: 40% PICC, SP 03/11 ALOC , SP History of encephalopathy. Hypertension. GERD. History of cystitis. Osteoporosis. Gout PLAN: cont on vancomycin and cefepime day #3, add Levaquin d # 2 Monitor CBC. Monitor BMP. Monitor cultures (blood, urine, and sputum). Continue respiratory support. Monitor chest x-ray. U legionella Ag Subjective Allergies: Coded Allergies: ASPIRIN (Verified Allergy, Unknown, 03/10/17) IBUPROFEN (Unverified Allergy, Unknown, 03/10/17) Subjective afebrile Objective Vital Signs Last 24 Hour Vital Signs Date Time Temp Pulse Resp B/P (MAP) Pulse Ox O2 Delivery O2 Flow Rate FiO2 03/12/17 12:18 110 03/12/17 12:00 60 03/12/17 12:00 97.3 114 33 122/66 95 Bi-pap 60 03/12/17 11:10 118 21 99 Full Face 60 03/12/17 09:10 114 16 100 Full Face 60 03/12/17 08:00 96.6 109 16 126/80 95 Bi-pap 70 03/12/17 08:00 115 03/12/17 08:00 70 03/12/17 07:18 112 18 94 Full Face 70 03/12/17 05:05 115 27 96 Full Face 70 03/12/17 04:00 98.0 126 24 150/77 97 Bi-pap 70 03/12/17 04:00 70 03/12/17 03:50 126 03/12/17 03:05 91 26 97 Full Face 70 03/12/17 00:37 111 16 98 Full Face 70 03/12/17 00:00 119 03/12/17 00:00 98.1 100 14 157/45 100 Bi-pap 03/12/17 00:00 80 03/11/17 22:54 117 16 99 Full Face 70 03/11/17 21:30 113 20 98 Full Face 80 03/11/17 20:00 80 03/11/17 19:59 98.3 120 15 129/82 99 Bi-pap 03/11/17 19:16 109 19 99 Full Face 80 03/11/17 19:16 140 11/3/17 17:07 107 20 10 Full Face 80 03/11/17 16:35 111 03/11/17 16:00 80 03/11/17 16:00 98.4 126 24 139/84 97 Bi-pap 80 03/11/17 15:49 116 24 100 Full Face 80 03/11/17 13:36 108 32 95 Full Face 80 Height (Feet): 5 Height (Inches): 3.00 Weight (Pounds): 122 HEENT: mucous membranes moist Respiratory/Chest: crackles/rales Cardiovascular: regular rhythm Abdomen: non distended Microbiology Date/Time Source Procedure Growth Status 03/10/17 01:25 Blood Blood Culture - Preliminary NO GROWTH AFTER 48 HOURS Resulted 03/10/17 01:15 Blood Blood Culture - Preliminary NO GROWTH AFTER 48 HOURS Resulted 03/10/17 01:20 Nasal Nares MRSA Culture - Final NO METHICILLIN RESISTANT STAPH AUREUS... Complete 03/10/17 01:20 Rectum VRE Culture - Final Enterococcus Faecium - Vre Complete Laboratory Tests Test 03/12/17 07:30 White Blood Count 28.0 K/UL (4.8-10.8) *H Red Blood Count 3.64 M/UL (4.20-5.40) L Hemoglobin 11.3 G/DL (12.0-16.0) L Hematocrit 35.6 % (37.0-47.0) L Mean Corpuscular Volume 98 FL (80-99) Mean Corpuscular Hemoglobin 31.0 PG (27.0-31.0) Mean Corpuscular Hemoglobin Concent 31.7 G/DL (32.0-36.0) L Red Cell Distribution Width 15.8 % (11.6-14.8) H Platelet Count 430 K/UL (150-450) Mean Platelet Volume 5.6 FL (6.5-10.1) L Neutrophils (%) (Auto) % (45.0-75.0) Lymphocytes (%) (Auto) % (20.0-45.0) Monocytes (%) (Auto) % (1.0-10.0) Eosinophils (%) (Auto) % (0.0-3.0) Basophils (%) (Auto) % (0.0-2.0) Differential Total Cells Counted 100 Neutrophils % (Manual) 93 % (45-75) H Lymphocytes % (Manual) 3 % (20-45) L Monocytes % (Manual) 3 % (1-10) Eosinophils % (Manual) 0 % (0-3) Basophils % (Manual) 1 % (0-2) Band Neutrophils 0 % (0-8) Platelet Estimate Adequate Platelet Morphology Normal Anisocytosis 1+ Schistocytes 1+ Sodium Level 140 MMOL/L (136-145) Potassium Level 3.4 MMOL/L (3.5-5.1) L Chloride Level 107 MMOL/L (98-107) Carbon Dioxide Level 23 MMOL/L (21-32) Anion Gap 10 mmol/L (5-15) Blood Urea Nitrogen 29 mg/dL (7-18) H Creatinine 1.1 MG/DL (0.55-1.30) Estimat Glomerular Filtration Rate mL/min (>60) Glucose Level 67 MG/DL (74-106) L Calcium Level 8.8 MG/DL (8.5-10.1) Troponin I 0.494 ng/mL (0.000-0.056) Current Medications Medications (Trade) Dose Ordered Sig/Daysi Route PRN Reason Start Time Stop Time Status Last Admin Dose Admin Acetaminophen (Tylenol) 650 mg Q4H PRN ORAL fever 03/10/17 04:45 04/09/17 04:44 Al Hydroxide/Mg Hydroxide (Mylanta II) 30 ml Q6H PRN ORAL dyspepsia 03/10/17 04:45 04/09/17 04:44 Albuterol/ Ipratropium (Albuterol/ Ipratropium) 3 ml Q4H PRN HHN Shortness of Breath 03/10/17 04:45 03/15/17 04:44 Cefepime HCl 2 gm/ Dextrose 110 ml @ 220 mls/hr Q24H IVPB 03/10/17 09:00 03/17/17 08:59 03/12/17 09:49 Chlorhexidine Gluconate (Francisca-Hex 2%) 1 applic DAILY@2000 TOPIC 03/10/17 20:00 04/09/17 19:59 03/11/17 20:47 Furosemide (Lasix) 20 mg EVERY 8 HOURS IV 03/10/17 14:15 04/09/17 14:14 03/12/17 05:40 Heparin Sodium (Porcine) (Heparin 5000 units/ml) 5,000 units EVERY 12 HOURS SUBQ 03/10/17 09:00 04/09/17 08:59 03/12/17 10:11 Levofloxacin 50 ml @ 50 mls/hr Q24H IVPB 03/12/17 15:00 03/19/17 14:59 Nitroglycerin (Ntg) 0.4 mg Q5M PRN SL Prn Chest Pain 03/10/17 04:45 04/09/17 04:44 Ondansetron HCl (Zofran) 4 mg Q6H PRN IVP Nausea & Vomiting 03/10/17 04:45 04/09/17 04:44 Polyethylene Glycol (Miralax) 17 gm DAILYPRN PRN ORAL Constipation 03/10/17 04:45 04/09/17 04:44 Promethazine HCl/ Codeine (Phenergan with Codeine) 5 ml Q4H PRN ORAL For Cough 03/10/17 04:45 04/09/17 04:44 Temazepam (Restoril) 15 mg HSPRN PRN ORAL Insomnia 03/10/17 04:45 03/17/17 04:44 03/11/17 21:12 Vancomycin HCl (Vanco rx to dose) 1 ea DAILY PRN MISC Per rx protocol 03/10/17 04:45 04/09/17 04:44 Vancomycin/Sodium Chloride 250 ml @ 166.667 mls/hr Q24H IVPB 03/11/17 06:00 03/16/17 05:59 03/12/17 05:41 GIAN PATRICIA M.D. Mar 12, 2017 13:35
--- NOTE | 2017-03-12 14:10 | General Progress Note ---
Assessment/Plan Status: stable Assessment/Plan Agitation encephalopathy noncompliance lacks capacity seroquel 25mg qhs Subjective Neurologic/Psychiatric: Reports: anxiety Allergies: Coded Allergies: ASPIRIN (Verified Allergy, Unknown, 03/10/17) IBUPROFEN (Unverified Allergy, Unknown, 03/10/17) Subjective the pt is on continues bipap. the pt was asleep. mental condition is unchanged. the pt is still confused and lacks capacity Objective Last 24 Hour Vital Signs Date Time Temp Pulse Resp B/P (MAP) Pulse Ox O2 Delivery O2 Flow Rate FiO2 03/12/17 12:18 110 03/12/17 12:00 60 03/12/17 12:00 97.3 114 33 122/66 95 Bi-pap 60 03/12/17 11:10 118 21 99 Full Face 60 03/12/17 09:10 114 16 100 Full Face 60 03/12/17 08:00 96.6 109 16 126/80 95 Bi-pap 70 03/12/17 08:00 115 03/12/17 08:00 70 03/12/17 07:18 112 18 94 Full Face 70 03/12/17 05:05 115 27 96 Full Face 70 03/12/17 04:00 98.0 126 24 150/77 97 Bi-pap 70 03/12/17 04:00 70 03/12/17 03:50 126 03/12/17 03:05 91 26 97 Full Face 70 03/12/17 00:37 111 16 98 Full Face 70 03/12/17 00:00 119 03/12/17 00:00 98.1 100 14 157/45 100 Bi-pap 03/12/17 00:00 80 03/11/17 22:54 117 16 99 Full Face 70 03/11/17 21:30 113 20 98 Full Face 80 03/11/17 20:00 80 03/11/17 19:59 98.3 120 15 129/82 99 Bi-pap 03/11/17 19:16 109 19 99 Full Face 80 03/11/17 19:16 140 03/11/17 17:07 107 20 10 Full Face 80 03/11/17 16:35 111 03/11/17 16:00 80 03/11/17 16:00 98.4 126 24 139/84 97 Bi-pap 80 03/11/17 15:49 116 24 100 Full Face 80 Intake and Output 03/12/17 03/13/17 19:00 07:00 Intake Total 273.87 ml Balance 273.87 ml Intake IV Total 273.87 ml Laboratory Tests 03/12/17 07:30: White Blood Count 28.0*H, Red Blood Count 3.64L, Hemoglobin 11.3L, Hematocrit 35.6L, Mean Corpuscular Volume 98, Mean Corpuscular Hemoglobin 31.0, Mean Corpuscular Hemoglobin Concent 31.7L, Red Cell Distribution Width 15.8H, Platelet Count 430, Mean Platelet Volume 5.6L, Neutrophils (%) (Auto) , Lymphocytes (%) (Auto) , Monocytes (%) (Auto) , Eosinophils (%) (Auto) , Basophils (%) (Auto) , Differential Total Cells Counted 100, Neutrophils % ( Manual) 93H, Lymphocytes % (Manual) 3L, Monocytes % (Manual) 3, Eosinophils % ( Manual) 0, Basophils % (Manual) 1, Band Neutrophils 0, Platelet Estimate Adequate, Platelet Morphology Normal, Anisocytosis 1+, Schistocytes 1+, Sodium Level 140, Potassium Level 3.4L, Chloride Level 107, Carbon Dioxide Level 23, Anion Gap 10, Blood Urea Nitrogen 29H, Creatinine 1.1, Estimat Glomerular Filtration Rate , Glucose Level 67L, Calcium Level 8.8, Troponin I 0.494H Height (Feet): 5 Height (Inches): 3.00 Weight (Pounds): 122 General Appearance: no apparent distress, alert, confused Neurologic: responsive, disoriented, depressed affect Mike Magana M.D. Mar 12, 2017 14:10
[2017-03-12] MEDS: Levofloxacin 250mg/D5W 50ml IVPB SCH (14:15)
--- NOTE | 2017-03-12 14:37 | Cardiology Report ---
APPROVED REPORT EKG Measurement Heart [id number] CT 132P65 [id number] Sinus tachycardia with premature supraventricular complexes Left posterior fascicular block T wave abnormality, consider anterior ischemia Abnormal ECG
--- NOTE | 2017-03-12 14:37 | Cardiology Report ---
APPROVED REPORT EKG Measurement Heart [id number] [place] 132P65 [id number] Sinus tachycardia with premature supraventricular complexes Left posterior fascicular block T wave abnormality, consider anterior ischemia Abnormal ECG
--- NOTE | 2017-03-12 14:37 | Cardiology Report ---
APPROVED REPORT EKG Measurement Heart [id number] [place] 132P65 [id number] Sinus tachycardia with premature supraventricular complexes Left posterior fascicular block T wave abnormality, consider anterior ischemia Abnormal ECG
[2017-03-12 16:00] VITALS: BP 127/73
[2017-03-12] MEDS ORDERED: NS 275ml ONE (17:45)
[2017-03-12] MEDS ORDERED: Tubing IV Secondary IV ONE (17:45)
[2017-03-12] MEDS: Dyna-Hex 2% Top Sol 2oz TOPIC SCH (22:28)
--- NOTE | 2017-03-12 22:37 | Cardiology Progress Note ---
Assessment/Plan Assessment/Plan respiratory failure ABG noted, she is compensated with mild alkalosis her HR is down by the evening sinus tach, no more SVT consider to decrease amt of braonchodilators Subjective Subjective the patient is on bipap she is agitated and wants bipapogg denies chest pian, has dypsnea Objective Last 24 Hour Vital Signs Date Time Temp Pulse Resp B/P (MAP) Pulse Ox O2 Delivery O2 Flow Rate FiO2 03/12/17 21:28 96 23 97 Full Face 60 03/12/17 19:50 105 27 98 Full Face 60 03/12/17 17:11 112 38 97 Full Face 60 03/12/17 16:00 60 03/12/17 16:00 97.3 111 30 127/73 95 Bi-pap 60 03/12/17 16:00 110 03/12/17 15:10 122 37 97 Full Face 60 03/12/17 13:10 116 26 97 Full Face 60 03/12/17 12:18 110 03/12/17 12:00 60 03/12/17 12:00 97.3 114 33 122/66 95 Bi-pap 60 03/12/17 11:10 118 21 99 Full Face 60 03/12/17 09:10 114 16 100 Full Face 60 03/12/17 08:00 96.6 109 16 126/80 95 Bi-pap 70 03/12/17 08:00 115 03/12/17 08:00 70 03/12/17 07:18 112 18 94 Full Face 70 03/12/17 05:05 115 27 96 Full Face 70 03/12/17 04:00 98.0 126 24 150/77 97 Bi-pap 70 03/12/17 04:00 70 03/12/17 03:50 126 03/12/17 03:05 91 26 97 Full Face 70 03/12/17 00:37 111 16 98 Full Face 70 03/12/17 00:00 119 03/12/17 00:00 98.1 100 14 157/45 100 Bi-pap 03/12/17 00:00 80 03/11/17 22:54 117 16 99 Full Face 70 General Appearance: cachetic, other - on Bipap EENT: PERRL/EOMI Neck: JVD Rhythm: ST, other - episodes of SVT Cardiovascular: tachycardia Respiratory/Chest: accessory muscle use, crackles/rales Abdomen: non tender Extremities: non-tender Intake and Output 03/12/17 03/13/17 19:00 07:00 Intake Total 373.87 ml Balance 373.87 ml Intake IV Total 373.87 ml # Voids 2 Laboratory Tests Test 03/12/17 07:30 03/12/17 18:02 White Blood Count 28.0 K/UL (4.8-10.8) *H Red Blood Count 3.64 M/UL (4.20-5.40) L Hemoglobin 11.3 G/DL (12.0-16.0) L Hematocrit 35.6 % (37.0-47.0) L Mean Corpuscular Volume 98 FL (80-99) Mean Corpuscular Hemoglobin 31.0 PG (27.0-31.0) Mean Corpuscular Hemoglobin Concent 31.7 G/DL (32.0-36.0) L Red Cell Distribution Width 15.8 % (11.6-14.8) H Platelet Count 430 K/UL (150-450) Mean Platelet Volume 5.6 FL (6.5-10.1) L Neutrophils (%) (Auto) % (45.0-75.0) Lymphocytes (%) (Auto) % (20.0-45.0) Monocytes (%) (Auto) % (1.0-10.0) Eosinophils (%) (Auto) % (0.0-3.0) Basophils (%) (Auto) % (0.0-2.0) Differential Total Cells Counted 100 Neutrophils % (Manual) 93 % (45-75) H Lymphocytes % (Manual) 3 % (20-45) L Monocytes % (Manual) 3 % (1-10) Eosinophils % (Manual) 0 % (0-3) Basophils % (Manual) 1 % (0-2) Band Neutrophils 0 % (0-8) Platelet Estimate Adequate Platelet Morphology Normal Anisocytosis 1+ Schistocytes 1+ Sodium Level 140 MMOL/L (136-145) Potassium Level 3.4 MMOL/L (3.5-5.1) L Chloride Level 107 MMOL/L (98-107) Carbon Dioxide Level 23 MMOL/L (21-32) Anion Gap 10 mmol/L (5-15) Blood Urea Nitrogen 29 mg/dL (7-18) H Creatinine 1.1 MG/DL (0.55-1.30) Estimat Glomerular Filtration Rate mL/min (>60) Glucose Level 67 MG/DL (74-106) L Calcium Level 8.8 MG/DL (8.5-10.1) Troponin I 0.494 ng/mL (0.000-0.056) Arterial Blood pH 7.456 (7.350-7.450) Arterial Blood Partial Pressure CO2 27.6 mmHg (35.0-45.0) L Arterial Blood Partial Pressure O2 61.8 mmHg (75.0-100.0) L Arterial Blood HCO3 19.0 mmol/L (22.0-26.0) L Arterial Blood Oxygen Saturation 91.7 % (92.0-98.0) L Arterial Blood Base Excess -3.6 Yohan Test Positive Microbiology Date/Time Source Procedure Growth Status 03/10/17 01:25 Blood Blood Culture - Preliminary NO GROWTH AFTER 48 HOURS Resulted 03/10/17 01:15 Blood Blood Culture - Preliminary NO GROWTH AFTER 48 HOURS Resulted 03/10/17 01:20 Nasal Nares MRSA Culture - Final NO METHICILLIN RESISTANT STAPH AUREUS... Complete 03/10/17 01:20 Rectum VRE Culture - Final Enterococcus Faecium - Vre Complete JAXSON DC Mar 12, 2017 22:37
[2017-03-12] MEDS ORDERED: D5 1/2NS 1,000 ML IV SCH (23:00)
[2017-03-13] VITALS: BP_SYST 103; BP_SYST 122; BP_DIAS 63; BP_DIAS 66
[2017-03-13 04:00] VITALS: BP 123/65
[2017-03-13] MEDS: Vancomycin 750mg/NS 250ml IVPB SCH (06:22)
--- NOTE | 2017-03-13 07:40 | Infectious Diseases Prog Note ---
Assessment/Plan Assessment/Plan A; Pneumonia VRE colonization Hypoxemic respiratory failure Systolic CHF P: cont on vancomycin and cefepime day #4, and Levaquin d # 3 Subjective ROS Limited/Unobtainable: Yes Respiratory: Reports: shortness of breath, dry cough Allergies: Coded Allergies: ASPIRIN (Verified Allergy, Unknown, 03/10/17) IBUPROFEN (Unverified Allergy, Unknown, 03/10/17) Objective Vital Signs Last 24 Hour Vital Signs Date Time Temp Pulse Resp B/P (MAP) Pulse Ox O2 Delivery O2 Flow Rate FiO2 03/13/17 06:56 Venturi Mask 14.0 55 03/13/17 06:55 91 Venturi Mask 14.0 55 03/13/17 05:18 104 17 95 Full Face 40 03/13/17 04:00 101 03/13/17 04:00 97.5 101 16 123/65 93 Bi-pap 40 03/13/17 04:00 40 03/13/17 03:15 101 21 96 Full Face 40 03/13/17 01:23 106 26 94 Full Face 40 03/13/17 00:00 76 03/13/17 00:00 40 03/13/17 00:00 97.0 108 16 103/66 95 Bi-pap 60 03/12/17 23:15 90 24 95 Full Face 40 03/12/17 21:28 96 23 97 Full Face 60 03/12/17 20:00 115 03/12/17 20:00 60 03/12/17 19:50 105 27 98 Full Face 60 03/12/17 17:11 112 38 97 Full Face 60 03/12/17 16:00 60 03/12/17 16:00 97.3 111 30 127/73 95 Bi-pap 60 03/12/17 16:00 110 03/12/17 15:10 122 37 97 Full Face 60 03/12/17 13:10 116 26 97 Full Face 60 03/12/17 12:18 110 03/12/17 12:00 60 03/12/17 12:00 97.3 114 33 122/66 95 Bi-pap 60 03/12/17 11:10 118 21 99 Full Face 60 03/12/17 09:10 114 16 100 Full Face 60 03/12/17 08:00 96.6 109 16 126/80 95 Bi-pap 70 03/12/17 08:00 115 03/12/17 08:00 70 Height (Feet): 5 Height (Inches): 3.00 Weight (Pounds): 122 HEENT: other - O2 by mask Respiratory/Chest: lungs clear Cardiovascular: tachycardia Abdomen: soft, non tender Extremities: no edema Neurologic/Psychiatric: alert, responsive Laboratory Tests Test 03/12/17 18:02 Arterial Blood pH 7.456 (7.350-7.450) Arterial Blood Partial Pressure CO2 27.6 mmHg (35.0-45.0) L Arterial Blood Partial Pressure O2 61.8 mmHg (75.0-100.0) L Arterial Blood HCO3 19.0 mmol/L (22.0-26.0) L Arterial Blood Oxygen Saturation 91.7 % (92.0-98.0) L Arterial Blood Base Excess -3.6 Yohan Test Positive Current Medications Medications (Trade) Dose Ordered Sig/Daysi Route PRN Reason Start Time Stop Time Status Last Admin Dose Admin Acetaminophen (Tylenol) 650 mg Q4H PRN ORAL fever 03/10/17 04:45 04/09/17 04:44 Al Hydroxide/Mg Hydroxide (Mylanta II) 30 ml Q6H PRN ORAL dyspepsia 03/10/17 04:45 04/09/17 04:44 Albuterol/ Ipratropium (Albuterol/ Ipratropium) 3 ml Q4H PRN HHN Shortness of Breath 03/10/17 04:45 03/15/17 04:44 Cefepime HCl 2 gm/ Dextrose 110 ml @ 220 mls/hr Q24H IVPB 03/10/17 09:00 03/17/17 08:59 03/12/17 09:49 Chlorhexidine Gluconate (Francisca-Hex 2%) 1 applic DAILY@2000 TOPIC 03/10/17 20:00 04/09/17 19:59 03/12/17 22:28 Dextrose/Sodium Chloride 1,000 ml @ 30 mls/hr Q24H IV 03/12/17 23:00 04/11/17 22:59 03/12/17 22:00 Furosemide (Lasix) 20 mg EVERY 8 HOURS IV 03/10/17 14:15 04/09/17 14:14 03/13/17 06:22 Heparin Sodium (Porcine) (Heparin 5000 units/ml) 5,000 units EVERY 12 HOURS SUBQ 03/10/17 09:00 04/09/17 08:59 03/12/17 22:31 Levofloxacin 50 ml @ 50 mls/hr Q24H IVPB 03/12/17 15:00 03/19/17 14:59 03/12/17 14:15 Nitroglycerin (Ntg) 0.4 mg Q5M PRN SL Prn Chest Pain 03/10/17 04:45 04/09/17 04:44 Ondansetron HCl (Zofran) 4 mg Q6H PRN IVP Nausea & Vomiting 03/10/17 04:45 04/09/17 04:44 Polyethylene Glycol (Miralax) 17 gm DAILYPRN PRN ORAL Constipation 03/10/17 04:45 04/09/17 04:44 Promethazine HCl/ Codeine (Phenergan with Codeine) 5 ml Q4H PRN ORAL For Cough 03/10/17 04:45 04/09/17 04:44 Quetiapine Fumarate (SEROquel) 25 mg Q12HR ORAL 03/13/17 09:00 04/12/17 08:59 Future Hold Temazepam (Restoril) 15 mg HSPRN PRN ORAL Insomnia 03/10/17 04:45 03/17/17 04:44 03/12/17 22:31 Vancomycin HCl (Vanco rx to dose) 1 ea DAILY PRN MISC Per rx protocol 03/10/17 04:45 04/09/17 04:44 Vancomycin/Sodium Chloride 250 ml @ 166.667 mls/hr Q24H IVPB 03/11/17 06:00 03/16/17 05:59 03/13/17 06:22 NORMA AMES Mar 13, 2017 07:40
[2017-03-13 08:00] VITALS: BP 148/79
--- NOTE | 2017-03-13 08:14 | Pulmonology Progress Note ---
Assessment/Plan Assessment/Plan ASSESSMENT acute hypoxemic respiratory failure requiring BiPAP ( due to CHF and PNA) systolic and diastolic heart failure leukocytosis, probably sepsis likely PNA cardiomyopathy elevated troponin high aspiration risk HTN advanced dementia multiple DTI POA PLAN OF CARE CHRISTOPHER weaned to VM 55% titrate to keep sat above 92% pulmonary toilet : CPT and HHN abx ID follows blood cx preliminary negative a/tussive prn swallow eval in am for now insert NGT and start TF gentle IVF, dc IVF when TF started venous Duplex BLE DVT prophylaxis cardio follows ECHO with EF 40% and RVSP of 25 minimally elevated troponin -per cardio management BP management, normotensive diuretic monitor renal parameters lytes, I/O fup with CXR and pro BNP DVT prophylaxis Bowel regimen wound care as per wound nurse recommendation seen and evaluated by psych and deemed to lack capacity to make informed decision case discussed and evaluated by supervising physician Subjective Allergies: Coded Allergies: ASPIRIN (Verified Allergy, Unknown, 03/10/17) IBUPROFEN (Unverified Allergy, Unknown, 03/10/17) Subjective on VM, more awake Objective Last 24 Hour Vital Signs Date Time Temp Pulse Resp B/P (MAP) Pulse Ox O2 Delivery O2 Flow Rate FiO2 03/13/17 06:56 Venturi Mask 14.0 55 03/13/17 06:55 91 Venturi Mask 14.0 55 03/13/17 05:18 104 17 95 Full Face 40 03/13/17 04:00 101 03/13/17 04:00 97.5 101 16 123/65 93 Bi-pap 40 03/13/17 04:00 40 03/13/17 03:15 101 21 96 Full Face 40 03/13/17 01:23 106 26 94 Full Face 40 03/13/17 00:00 76 03/13/17 00:00 40 03/13/17 00:00 97.0 108 16 103/66 95 Bi-pap 60 03/12/17 23:15 90 24 95 Full Face 40 03/12/17 21:28 96 23 97 Full Face 60 03/12/17 20:00 115 03/12/17 20:00 60 03/12/17 19:50 105 27 98 Full Face 60 03/12/17 17:11 112 38 97 Full Face 60 03/12/17 16:00 60 03/12/17 16:00 97.3 111 30 127/73 95 Bi-pap 60 03/12/17 16:00 110 03/12/17 15:10 122 37 97 Full Face 60 03/12/17 13:10 116 26 97 Full Face 60 03/12/17 12:18 110 03/12/17 12:00 60 03/12/17 12:00 97.3 114 33 122/66 95 Bi-pap 60 03/12/17 11:10 118 21 99 Full Face 60 03/12/17 09:10 114 16 100 Full Face 60 Intake and Output 03/13/17 03/14/17 19:00 07:00 Intake Total 250.000 ml Balance 250.000 ml Intake IV Total 250.000 ml Objective General Appearance: no acute distress, elderly, frail, bedridden female HEENT: normocephalic, atraumatic, VM 55% Respiratory/Chest: no respiratory distress, decreased breath sounds Cardiovascular: regular rhythm, tachycardia, PICC RUE intact Abdomen: soft, non tender Extremities: no edema Neurologic/Psychiatric: abnormal gait/ bedridden , open eyes spontaneously, poorly but responsive Musculoskeletal: atrophy - BLE Laboratory Tests 03/12/17 18:02: Arterial Blood pH 7.456H, Arterial Blood Partial Pressure CO2 27.6L, Arterial Blood Partial Pressure O2 61.8L, Arterial Blood HCO3 19.0L, Arterial Blood Oxygen Saturation 91.7L, Arterial Blood Base Excess -3.6, Yohan Test Positive Current Medications Medications (Trade) Dose Ordered Sig/Daysi Route PRN Reason Start Time Stop Time Status Last Admin Dose Admin Acetaminophen (Tylenol) 650 mg Q4H PRN ORAL fever 03/10/17 04:45 04/09/17 04:44 Al Hydroxide/Mg Hydroxide (Mylanta II) 30 ml Q6H PRN ORAL dyspepsia 03/10/17 04:45 04/09/17 04:44 Albuterol/ Ipratropium (Albuterol/ Ipratropium) 3 ml Q4H PRN HHN Shortness of Breath 03/10/17 04:45 03/15/17 04:44 Cefepime HCl 2 gm/ Dextrose 110 ml @ 220 mls/hr Q24H IVPB 03/10/17 09:00 03/17/17 08:59 03/12/17 09:49 Chlorhexidine Gluconate (Francisca-Hex 2%) 1 applic DAILY@2000 TOPIC 03/10/17 20:00 04/09/17 19:59 03/12/17 22:28 Dextrose/Sodium Chloride 1,000 ml @ 30 mls/hr Q24H IV 03/12/17 23:00 04/11/17 22:59 03/12/17 22:00 Furosemide (Lasix) 20 mg EVERY 8 HOURS IV 03/10/17 14:15 04/09/17 14:14 03/13/17 06:22 Heparin Sodium (Porcine) (Heparin 5000 units/ml) 5,000 units EVERY 12 HOURS SUBQ 03/10/17 09:00 04/09/17 08:59 03/12/17 22:31 Levofloxacin 50 ml @ 50 mls/hr Q24H IVPB 03/12/17 15:00 03/19/17 14:59 03/12/17 14:15 Nitroglycerin (Ntg) 0.4 mg Q5M PRN SL Prn Chest Pain 03/10/17 04:45 04/09/17 04:44 Ondansetron HCl (Zofran) 4 mg Q6H PRN IVP Nausea & Vomiting 03/10/17 04:45 04/09/17 04:44 Polyethylene Glycol (Miralax) 17 gm DAILYPRN PRN ORAL Constipation 03/10/17 04:45 04/09/17 04:44 Promethazine HCl/ Codeine (Phenergan with Codeine) 5 ml Q4H PRN ORAL For Cough 03/10/17 04:45 04/09/17 04:44 Quetiapine Fumarate (SEROquel) 25 mg Q12HR ORAL 03/13/17 09:00 04/12/17 08:59 Future Hold Temazepam (Restoril) 15 mg HSPRN PRN ORAL Insomnia 03/10/17 04:45 03/17/17 04:44 03/12/17 22:31 Vancomycin HCl (Vanco rx to dose) 1 ea DAILY PRN MISC Per rx protocol 03/10/17 04:45 04/09/17 04:44 Vancomycin/Sodium Chloride 250 ml @ 166.667 mls/hr Q24H IVPB 03/11/17 06:00 03/16/17 05:59 03/13/17 06:22 Carmenza Montes De Oca (Vanchtein) [employer] Mar 13, 2017 08:14
[2017-03-13] MEDS ORDERED: Albuterol/Ipratropium 3ml neb HHN PRN (08:15)
[2017-03-13] MEDS: Heparin 5000 units/ml inj SUBQ SCH ×2 (08:41→20:42)
[2017-03-13] MEDS: Cefepime 2gm in D5W 110ml IVPB SCH (08:42)
[2017-03-13] MEDS: D5 1/2NS 1,000 ML IV SCH (10:30)
[2017-03-13 10:33] LABS: HEMATOCRIT 37.3 % (37.0-47.0); HEMOGLOBIN 11.6 G/DL (12.0-16.0); MEAN CORPUSCULAR VOLUME 97 FL (80-99); PLATELET COUNT 440 K/UL (150-450); RED BLOOD COUNT 3.84 M/UL (4.20-5.40); RED CELL DISTRIBUTION WIDTH 15.9 % (11.6-14.8); WHITE BLOOD COUNT 27.8 K/UL (4.8-10.8)
[2017-03-13 11:54] LABS: ANION GAP 11 mmol/L (5-15); BLOOD UREA NITROGEN 34 mg/dL (7-18); CALCIUM 8.7 MG/DL (8.5-10.1); CARBON DIOXIDE 22 MMOL/L (21-32); CHLORIDE 107 MMOL/L (98-107); CREATININE 1.1 MG/DL (0.55-1.30); POTASSIUM 3.2 MMOL/L (3.5-5.1); SODIUM 139 MMOL/L (136-145)
[2017-03-13 12:00] VITALS: BP 138/65
--- NOTE | 2017-03-13 14:43 | Cardiology Progress Note ---
Assessment/Plan Assessment/Plan respiratory failure ABG noted, she is compensated with mild alkalosis, hypoxemia will start low dose of IV Metoporlol for rate control Subjective Subjective the patient is on bipap she is agitated and wants bipap off denies chest pian, has dyspnea Objective Last 24 Hour Vital Signs Date Time Temp Pulse Resp B/P (MAP) Pulse Ox O2 Delivery O2 Flow Rate FiO2 03/13/17 12:00 97.5 126 18 138/65 97 Venturi Mask 35 03/13/17 11:50 106 03/13/17 08:01 119 03/13/17 08:00 97.6 79 22 148/79 96 Venturi Mask 55 03/13/17 06:56 Venturi Mask 14.0 55 03/13/17 06:55 91 Venturi Mask 14.0 55 03/13/17 05:18 104 17 95 Full Face 40 03/13/17 04:00 101 03/13/17 04:00 97.5 101 16 123/65 93 Bi-pap 40 03/13/17 04:00 40 03/13/17 03:15 101 21 96 Full Face 40 03/13/17 01:23 106 26 94 Full Face 40 03/13/17 00:00 76 03/13/17 00:00 40 03/13/17 00:00 97.0 108 16 103/66 95 Bi-pap 60 03/12/17 23:15 90 24 95 Full Face 40 03/12/17 21:28 96 23 97 Full Face 60 03/12/17 20:00 115 03/12/17 20:00 60 03/12/17 19:50 105 27 98 Full Face 60 03/12/17 17:11 112 38 97 Full Face 60 03/12/17 16:00 60 03/12/17 16:00 97.3 111 30 127/73 95 Bi-pap 60 03/12/17 16:00 110 03/12/17 15:10 122 37 97 Full Face 60 General Appearance: cachetic, agitated EENT: PERRL/EOMI Neck: JVD Rhythm: ST Cardiovascular: tachycardia Respiratory/Chest: crackles/rales Abdomen: non tender Extremities: trace edema Intake and Output 03/13/17 03/14/17 19:00 07:00 Intake Total 515.000 ml Balance 515.000 ml Intake IV Total 515.000 ml Laboratory Tests Test 03/12/17 18:02 03/13/17 10:15 Arterial Blood pH 7.456 (7.350-7.450) Arterial Blood Partial Pressure CO2 27.6 mmHg (35.0-45.0) L Arterial Blood Partial Pressure O2 61.8 mmHg (75.0-100.0) L Arterial Blood HCO3 19.0 mmol/L (22.0-26.0) L Arterial Blood Oxygen Saturation 91.7 % (92.0-98.0) L Arterial Blood Base Excess -3.6 Yohan Test Positive White Blood Count 27.8 K/UL (4.8-10.8) *H Red Blood Count 3.84 M/UL (4.20-5.40) L Hemoglobin 11.6 G/DL (12.0-16.0) L Hematocrit 37.3 % (37.0-47.0) Mean Corpuscular Volume 97 FL (80-99) Mean Corpuscular Hemoglobin 30.3 PG (27.0-31.0) Mean Corpuscular Hemoglobin Concent 31.2 G/DL (32.0-36.0) L Red Cell Distribution Width 15.9 % (11.6-14.8) H Platelet Count 440 K/UL (150-450) Mean Platelet Volume 6.0 FL (6.5-10.1) L Neutrophils (%) (Auto) % (45.0-75.0) Lymphocytes (%) (Auto) % (20.0-45.0) Monocytes (%) (Auto) % (1.0-10.0) Eosinophils (%) (Auto) % (0.0-3.0) Basophils (%) (Auto) % (0.0-2.0) Differential Total Cells Counted 100 Neutrophils % (Manual) 94 % (45-75) H Lymphocytes % (Manual) 4 % (20-45) L Monocytes % (Manual) 2 % (1-10) Eosinophils % (Manual) 0 % (0-3) Basophils % (Manual) 0 % (0-2) Band Neutrophils 0 % (0-8) Platelet Estimate Adequate Platelet Morphology Normal Hypochromasia 1+ Anisocytosis 1+ Sodium Level 139 MMOL/L (136-145) Potassium Level 3.2 MMOL/L (3.5-5.1) L Chloride Level 107 MMOL/L (98-107) Carbon Dioxide Level 22 MMOL/L (21-32) Anion Gap 11 mmol/L (5-15) Blood Urea Nitrogen 34 mg/dL (7-18) H Creatinine 1.1 MG/DL (0.55-1.30) Estimat Glomerular Filtration Rate mL/min (>60) Glucose Level 110 MG/DL (74-106) H Calcium Level 8.7 MG/DL (8.5-10.1) JAXSON DC Mar 13, 2017 14:43
[2017-03-13] MEDS: Levofloxacin 250mg/D5W 50ml IVPB SCH (15:07)
[2017-03-13 16:12] VITALS: BP 146/72
[2017-03-13] MEDS ORDERED: POTASSIUM CHLORIDE IV ONE (17:30)
[2017-03-13] MEDS ORDERED: D5W IV ONE (17:30)
[2017-03-13 20:00] VITALS: BP 128/80
[2017-03-13] MEDS: Dyna-Hex 2% Top Sol 2oz TOPIC SCH (20:36)
[2017-03-14] VITALS (7 sets, daily range): BP systolic 129–156; BP diastolic 55–103
[2017-03-14 05:58] LABS: HEMATOCRIT 37.1 % (37.0-47.0); HEMOGLOBIN 11.9 G/DL (12.0-16.0); MEAN CORPUSCULAR VOLUME 96 FL (80-99); PLATELET COUNT 393 K/UL (150-450); RED BLOOD COUNT 3.85 M/UL (4.20-5.40); RED CELL DISTRIBUTION WIDTH 15.6 % (11.6-14.8)
[2017-03-14 06:22] LABS: WHITE BLOOD COUNT 26.1 K/UL (4.8-10.8)
[2017-03-14 06:25] LABS: ANION GAP 10 mmol/L (5-15); BLOOD UREA NITROGEN 35 mg/dL (7-18); CALCIUM 8.8 MG/DL (8.5-10.1); CARBON DIOXIDE 24 MMOL/L (21-32); CHLORIDE 107 MMOL/L (98-107); CREATININE 1.2 MG/DL (0.55-1.30); POTASSIUM 3.5 MMOL/L (3.5-5.1); SODIUM 141 MMOL/L (136-145)
--- NOTE | 2017-03-14 08:45 | Consultation ---
DATE OF CONSULTATION: 03/11/2017 CARDIOLOGY CONSULTATION CONSULTING PHYSICIAN: Markos Lakhani M.D. REFERRING PHYSICIAN: Nishi Soriano M.D. REASON FOR REFERRAL: Shortness of breath. HISTORY OF PRESENT ILLNESS: The patient is an elderly female, who is really not able to provide any meaningful history. She has a history of diastolic heart failure, peripheral vascular disease, hypertension, and apparently has had hospitalization at [facility]. She has been in a convalescent facility under the hospice of enhanced cardiac care program at [facility], apparently was having increasing shortness of breath, and was transferred to the hospital at [facility]. At the present time, she is on a BiPAP treatment and is unable to provide any meaningful history whatsoever. Staff indicates that she has had saturations as low as 80% prior to being placed back on a BiPAP machine. PAST MEDICAL HISTORY: Information from [facility] indicates the patient has history of atrial fibrillation and has had some injury, gastric ulcer, gastroesophageal reflux disease, throat cancer, osteoporosis, post-polio syndrome, pseudogout, reflex sympathetic dystrophy, peptic ulcer disease, history of ulcer surgery, femoral bypass, left shoulder surgery, right ankle fusion, lumbar , YANG-BSO, urinary tract infection with altered mentation, renal insufficiency, dehydration, rib fracture, diastolic heart failure, metabolic encephalopathy, severe osteoporosis, pernicious anemia, nonspecific chest pains, myoclonic jerks, perforated duodenal ulcers, and carotid stenosis. In either case, she is not able to provide any meaningful history whatsoever. ALLERGIES: Aspirin and ibuprofen. SOCIAL HISTORY: Smoking history and alcohol history is not known. PHYSICAL EXAMINATION: GENERAL: Physical examination shows her to be elderly female, on BiPAP therapy. HEENT: Oral mucosa is dry. NECK: Supple. LUNGS: Decreased breath sounds bilaterally. CARDIAC: Regular rate and rhythm. She has a systolic ejection murmur noted. ABDOMEN: Soft and nontender. Positive bowel sounds. EXTREMITIES: There is no clubbing or cyanosis. There is no edema. NEUROLOGICAL: She is arousable, responsive, and communicative, although she is difficult to understand. LABORATORY VALUES AND DIAGNOSTIC DATA: Sodium 140, potassium 4.9, chloride 108, bicarbonate 23, BUN 25, creatinine 1.2, and glucose of 125. Lactic acid 1.7. Troponin of 0.453. ProBNP of 18,000. Albumin of 1.7. Urinalysis, 2 to 4 RBCs, 0 to 2 WBCs. Chest x-ray performed on 03/11/2017 shows extensive bilateral diffuse interstitial infiltrates. Large pleural effusions are again demonstrated, unchanged. Echocardiogram apparently final read was read as ejection fraction of 40%, mild mitral regurgitation, and mild diastolic relaxation abnormalities. ASSESSMENT AND PLAN: 1. Respiratory insufficiency. 2. Systolic as well as diastolic heart failure. 3. Pleural effusions. 4. Peripheral vascular disease. 5. History of hypertension. 6. Low body mass index. This patient was admitted to the hospital. The patient should receive continuously diuretics to help with her congestive heart failure and pleural effusions. She is being managed on a BiPAP therapy. Antibiotics empirically being administered. Hand-held nebulizers are also being administered. I will follow the patient along with you. Repeat cardiac enzymes will be performed. She should receive some aspirin for the time being if possible if she is able to take anything by mouth. There are no ST-segment changes on the EKG. Markos Lakhani M.D. DR: ANKUR JOB#: [id number] CC:
[2017-03-14] MEDS: Vancomycin 750mg/NS 250ml IVPB SCH (08:55)
[2017-03-14] MEDS: Heparin 5000 units/ml inj SUBQ SCH ×2 (08:56→20:45)
[2017-03-14] MEDS: D5 1/2NS 1,000 ML IV SCH (08:56)
[2017-03-14] MEDS: Cefepime 2gm in D5W 110ml IVPB SCH (10:11)
--- NOTE | 2017-03-14 10:42 | Infectious Diseases Prog Note ---
Assessment/Plan Assessment/Plan A: The patient is an 86-year-old female with Leukocytosis, improving Respiratory failure , SP pneumonia Rule out bacteremia Afebrile. EF: 40% PICC, SP 03/11 ALOC , SP History of encephalopathy. Hypertension. GERD. History of cystitis. Osteoporosis. Gout PLAN: cont on vancomycin and cefepime day #5 / , add Levaquin d # 4 / Monitor CBC. Monitor BMP. Monitor cultures (blood, urine, and sputum). Continue respiratory support. Monitor chest x-ray. U legionella Ag Subjective Allergies: Coded Allergies: ASPIRIN (Verified Allergy, Unknown, 03/10/17) IBUPROFEN (Unverified Allergy, Unknown, 03/10/17) Subjective no acute event afebrile Objective Vital Signs Last 24 Hour Vital Signs Date Time Temp Pulse Resp B/P (MAP) Pulse Ox O2 Delivery O2 Flow Rate FiO2 03/14/17 09:28 97.1 125 20 142/82 93 Venturi Mask 55 03/14/17 08:00 97.7 109 20 156/103 92 Venturi Mask 55 03/14/17 07:51 107 03/14/17 07:20 95 Venturi Mask 14.0 55 03/14/17 07:20 Venturi Mask 14.0 55 03/14/17 04:00 97.3 110 22 130/96 92 Venturi Mask 55 03/14/17 04:00 110 03/14/17 00:00 126 03/14/17 00:00 97.2 108 18 146/82 95 Venturi Mask 55 03/13/17 20:06 92 Venturi Mask 14.0 55 03/13/17 20:06 Venturi Mask 14.0 55 03/13/17 20:00 96.6 110 28 128/80 93 Venturi Mask 55 03/13/17 20:00 110 03/13/17 16:12 97.0 100 18 146/72 92 Venturi Mask 55 03/13/17 15:24 113 03/13/17 12:00 97.5 126 18 138/65 97 Venturi Mask 35 03/13/17 11:50 106 Height (Feet): 5 Height (Inches): 3.00 Weight (Pounds): 122 HEENT: anicteric Respiratory/Chest: lungs clear Cardiovascular: regularly irregular Abdomen: non distended Laboratory Tests Test 03/14/17 05:15 White Blood Count 26.1 K/UL (4.8-10.8) *H Red Blood Count 3.85 M/UL (4.20-5.40) L Hemoglobin 11.9 G/DL (12.0-16.0) L Hematocrit 37.1 % (37.0-47.0) Mean Corpuscular Volume 96 FL (80-99) Mean Corpuscular Hemoglobin 31.0 PG (27.0-31.0) Mean Corpuscular Hemoglobin Concent 32.1 G/DL (32.0-36.0) Red Cell Distribution Width 15.6 % (11.6-14.8) H Platelet Count 393 K/UL (150-450) Mean Platelet Volume 5.5 FL (6.5-10.1) L Neutrophils (%) (Auto) % (45.0-75.0) Lymphocytes (%) (Auto) % (20.0-45.0) Monocytes (%) (Auto) % (1.0-10.0) Eosinophils (%) (Auto) % (0.0-3.0) Basophils (%) (Auto) % (0.0-2.0) Differential Total Cells Counted 100 Neutrophils % (Manual) 97 % (45-75) H Lymphocytes % (Manual) 2 % (20-45) L Monocytes % (Manual) 1 % (1-10) Eosinophils % (Manual) 0 % (0-3) Basophils % (Manual) 0 % (0-2) Band Neutrophils 0 % (0-8) Platelet Estimate Adequate Platelet Morphology Normal Anisocytosis 1+ Sodium Level 141 MMOL/L (136-145) Potassium Level 3.5 MMOL/L (3.5-5.1) Chloride Level 107 MMOL/L (98-107) Carbon Dioxide Level 24 MMOL/L (21-32) Anion Gap 10 mmol/L (5-15) Blood Urea Nitrogen 35 mg/dL (7-18) H Creatinine 1.2 MG/DL (0.55-1.30) Estimat Glomerular Filtration Rate mL/min (>60) Glucose Level 114 MG/DL (74-106) H Calcium Level 8.8 MG/DL (8.5-10.1) Magnesium Level 1.6 MG/DL (1.8-2.4) L Vancomycin Level Trough 11.1 ug/mL (5.0-12.0) Current Medications Medications (Trade) Dose Ordered Sig/Daysi Route PRN Reason Start Time Stop Time Status Last Admin Dose Admin Acetaminophen (Tylenol) 650 mg Q4H PRN ORAL fever 03/10/17 04:45 04/09/17 04:44 Al Hydroxide/Mg Hydroxide (Mylanta II) 30 ml Q6H PRN ORAL dyspepsia 03/10/17 04:45 04/09/17 04:44 Albuterol/ Ipratropium (Albuterol/ Ipratropium) 3 ml Q4H PRN HHN Shortness of Breath 03/13/17 08:15 03/18/17 08:14 Cefepime HCl 2 gm/ Dextrose 110 ml @ 220 mls/hr Q24H IVPB 03/10/17 09:00 03/17/17 08:59 03/14/17 10:11 Chlorhexidine Gluconate (Francisca-Hex 2%) 1 applic DAILY@2000 TOPIC 03/10/17 20:00 04/09/17 19:59 03/13/17 20:36 Dextrose/Sodium Chloride 1,000 ml @ 30 mls/hr Q24H IV 03/13/17 08:15 04/12/17 08:14 03/14/17 08:56 Furosemide (Lasix) 20 mg EVERY 8 HOURS IV 03/10/17 14:15 04/09/17 14:14 03/14/17 06:02 Heparin Sodium (Porcine) (Heparin 5000 units/ml) 5,000 units EVERY 12 HOURS SUBQ 03/10/17 09:00 04/09/17 08:59 03/14/17 08:56 Levofloxacin 50 ml @ 50 mls/hr Q24H IVPB 03/12/17 15:00 03/19/17 14:59 03/13/17 15:07 Nitroglycerin (Ntg) 0.4 mg Q5M PRN SL Prn Chest Pain 03/10/17 04:45 04/09/17 04:44 Ondansetron HCl (Zofran) 4 mg Q6H PRN IVP Nausea & Vomiting 03/10/17 04:45 04/09/17 04:44 Polyethylene Glycol (Miralax) 17 gm DAILYPRN PRN ORAL Constipation 03/10/17 04:45 04/09/17 04:44 Promethazine HCl/ Codeine (Phenergan with Codeine) 5 ml Q4H PRN ORAL For Cough 03/10/17 04:45 04/09/17 04:44 Quetiapine Fumarate (SEROquel) 25 mg Q12HR ORAL 03/13/17 09:00 04/12/17 08:59 Future Hold Temazepam (Restoril) 15 mg HSPRN PRN ORAL Insomnia 03/10/17 04:45 03/17/17 04:44 03/12/17 22:31 Vancomycin HCl (Vanco rx to dose) 1 ea DAILY PRN MISC Per rx protocol 03/10/17 04:45 04/09/17 04:44 Vancomycin HCl 1 gm/Dextrose 275 ml @ 183.708 mls/hr Q24H IVPB 03/15/17 04:00 03/20/17 03:59 GIAN PATRICIA M.D. Mar 14, 2017 10:42
--- NOTE | 2017-03-14 13:07 | Pulmonology Progress Note ---
Assessment/Plan Problems: (1) Respiratory failure with hypoxia (2) Pulmonary edema (3) Pneumonia (4) Diastolic CHF (5) At high risk for aspiration (6) Alzheimer's dementia Assessment/Plan has central line now off bipapa on lasix and antibiotics wbc still high talked [facility] with D[facility] and hospice and end of life care. Subjective ROS Limited/Unobtainable: No Interval Events: looks more comfortable Constitutional: Reports: no symptoms HEENT: Repors: no symptoms Respiratory: Reports: no symptoms Allergies: Coded Allergies: ASPIRIN (Verified Allergy, Unknown, 03/10/17) IBUPROFEN (Unverified Allergy, Unknown, 03/10/17) Objective Last 24 Hour Vital Signs Date Time Temp Pulse Resp B/P (MAP) Pulse Ox O2 Delivery O2 Flow Rate FiO2 03/14/17 12:00 97.3 111 18 152/92 90 Venturi Mask 55 03/14/17 11:34 111 03/14/17 09:28 97.1 125 20 142/82 93 Venturi Mask 55 03/14/17 08:00 97.7 109 20 156/103 92 Venturi Mask 55 03/14/17 07:51 107 03/14/17 07:20 95 Venturi Mask 14.0 55 03/14/17 07:20 Venturi Mask 14.0 55 03/14/17 04:00 97.3 110 22 130/96 92 Venturi Mask 55 03/14/17 04:00 110 03/14/17 00:00 126 03/14/17 00:00 97.2 108 18 146/82 95 Venturi Mask 55 03/13/17 20:06 92 Venturi Mask 14.0 55 03/13/17 20:06 Venturi Mask 14.0 55 03/13/17 20:00 96.6 110 28 128/80 93 Venturi Mask 55 03/13/17 20:00 110 03/13/17 16:12 97.0 100 18 146/72 92 Venturi Mask 55 03/13/17 15:24 113 Intake and Output 03/14/17 03/15/17 19:00 07:00 Intake Total 258.667 ml Balance 258.667 ml Intake IV Total 258.667 ml Objective off BIPAP HEENT: normocephalic, atraumatic Respiratory/Chest: chest wall non-tender, lungs clear Breasts: no masses Cardiovascular: normal peripheral pulses Abdomen: normal bowel sounds, soft, non tender Genitourinary: normal external genitalia Skin: no rash Lymphatic: no neck adenopathy Laboratory Tests 03/14/17 05:15: White Blood Count 26.1*H, Red Blood Count 3.85L, Hemoglobin 11.9L, Hematocrit 37.1, Mean Corpuscular Volume 96, Mean Corpuscular Hemoglobin 31.0, Mean Corpuscular Hemoglobin Concent 32.1, Red Cell Distribution Width 15.6H, Platelet Count 393, Mean Platelet Volume 5.5L, Neutrophils (%) (Auto) , Lymphocytes (%) (Auto) , Monocytes (%) (Auto) , Eosinophils (%) (Auto) , Basophils (%) (Auto) , Differential Total Cells Counted 100, Neutrophils % ( Manual) 97H, Lymphocytes % (Manual) 2L, Monocytes % (Manual) 1, Eosinophils % ( Manual) 0, Basophils % (Manual) 0, Band Neutrophils 0, Platelet Estimate Adequate, Platelet Morphology Normal, Anisocytosis 1+, Sodium Level 141, Potassium Level 3.5, Chloride Level 107, Carbon Dioxide Level 24, Anion Gap 10, Blood Urea Nitrogen 35H, Creatinine 1.2, Estimat Glomerular Filtration Rate , Glucose Level 114H, Calcium Level 8.8, Magnesium Level 1.6L, Vancomycin Level Trough 11.1 Current Medications Medications (Trade) Dose Ordered Sig/Daysi Route PRN Reason Start Time Stop Time Status Last Admin Dose Admin Acetaminophen (Tylenol) 650 mg Q4H PRN ORAL fever 03/10/17 04:45 04/09/17 04:44 Al Hydroxide/Mg Hydroxide (Mylanta II) 30 ml Q6H PRN ORAL dyspepsia 03/10/17 04:45 04/09/17 04:44 Albuterol/ Ipratropium (Albuterol/ Ipratropium) 3 ml Q4H PRN HHN Shortness of Breath 03/13/17 08:15 03/18/17 08:14 Cefepime HCl 2 gm/ Dextrose 110 ml @ 220 mls/hr Q24H IVPB 03/10/17 09:00 03/17/17 08:59 03/14/17 10:11 Chlorhexidine Gluconate (Francisca-Hex 2%) 1 applic DAILY@2000 TOPIC 03/10/17 20:00 04/09/17 19:59 03/13/17 20:36 Dextrose/Sodium Chloride 1,000 ml @ 30 mls/hr Q24H IV 03/13/17 08:15 04/12/17 08:14 03/14/17 08:56 Furosemide (Lasix) 20 mg EVERY 8 HOURS IV 03/10/17 14:15 04/09/17 14:14 03/14/17 06:02 Heparin Sodium (Porcine) (Heparin 5000 units/ml) 5,000 units EVERY 12 HOURS SUBQ 03/10/17 09:00 04/09/17 08:59 03/14/17 08:56 Levofloxacin 50 ml @ 50 mls/hr Q24H IVPB 03/12/17 15:00 03/19/17 14:59 03/13/17 15:07 Nitroglycerin (Ntg) 0.4 mg Q5M PRN SL Prn Chest Pain 03/10/17 04:45 04/09/17 04:44 Ondansetron HCl (Zofran) 4 mg Q6H PRN IVP Nausea & Vomiting 03/10/17 04:45 04/09/17 04:44 Polyethylene Glycol (Miralax) 17 gm DAILYPRN PRN ORAL Constipation 03/10/17 04:45 04/09/17 04:44 Promethazine HCl/ Codeine (Phenergan with Codeine) 5 ml Q4H PRN ORAL For Cough 03/10/17 04:45 04/09/17 04:44 Quetiapine Fumarate (SEROquel) 25 mg Q12HR ORAL 03/13/17 09:00 04/12/17 08:59 Future Hold Temazepam (Restoril) 15 mg HSPRN PRN ORAL Insomnia 03/10/17 04:45 03/17/17 04:44 03/12/17 22:31 Vancomycin HCl (Vanco rx to dose) 1 ea DAILY PRN MISC Per rx protocol 03/10/17 04:45 04/09/17 04:44 Vancomycin HCl 1 gm/Dextrose 275 ml @ 183.708 mls/hr Q24H IVPB 03/15/17 04:00 03/20/17 03:59 KD BEGUM Mar 14, 2017 13:07
--- NOTE | 2017-03-14 15:03 | Diagnostic Imaging Report ---
Indication: Dyspnea Comparison: 03/11/17 A single view chest radiograph was obtained. Findings: Extensive infiltrate demonstrated bilaterally. Heart is enlarged. Bilateral pleural effusions are suspected. There is no change in this regard identified. There is a PICC line is been placed and is in good position within the right arm. The tip is in the SVC. Impression: PICC line in good position. Extensive bilateral infiltrates versus asymmetric patchy pulmonary edema. Please correlate clinically. Bilateral pleural effusions
[2017-03-14] MEDS: Levofloxacin 250mg/D5W 50ml IVPB SCH (15:11)
--- NOTE | 2017-03-14 18:33 | Cardiology Progress Note ---
Assessment/Plan Assessment/Plan 1. Respiratory insufficiency. 2. Systolic as well as diastolic heart failure. 3. Pleural effusions. 4. Peripheral vascular disease. 5. History of hypertension. 6. Low body mass index. 7. pulm infiltrate 8. trachy tele noted shor svt and sinus tachy vs MAT? on diuretic tid hwoeve i doubt present pulm infiltrate related to purely chf underlying pulm pathology likey noted possible hospic care in near future Subjective ROS Limited/Unobtainable: Yes Objective Last 24 Hour Vital Signs Date Time Temp Pulse Resp B/P (MAP) Pulse Ox O2 Delivery O2 Flow Rate FiO2 03/14/17 16:00 120 03/14/17 16:00 97.7 114 22 129/82 92 Venturi Mask 55 03/14/17 12:00 97.3 111 18 152/92 90 Venturi Mask 55 03/14/17 11:34 111 03/14/17 09:28 97.1 125 20 142/82 93 Venturi Mask 55 03/14/17 08:00 97.7 109 20 156/103 92 Venturi Mask 55 03/14/17 07:51 107 03/14/17 07:20 95 Venturi Mask 14.0 55 03/14/17 07:20 Venturi Mask 14.0 55 03/14/17 04:00 97.3 110 22 130/96 92 Venturi Mask 55 03/14/17 04:00 110 03/14/17 00:00 126 03/14/17 00:00 97.2 108 18 146/82 95 Venturi Mask 55 03/13/17 20:06 92 Venturi Mask 14.0 55 03/13/17 20:06 Venturi Mask 14.0 55 03/13/17 20:00 96.6 110 28 128/80 93 Venturi Mask 55 03/13/17 20:00 110 General Appearance: alert Cardiovascular: normal rate, regular rhythm Respiratory/Chest: crackles/rales Abdomen: normal bowel sounds, non tender, soft Extremities: no swelling Intake and Output 03/14/17 03/15/17 19:00 07:00 Intake Total 632.000 ml Balance 632.000 ml Intake IV Total 632.000 ml Laboratory Tests Test 03/14/17 05:15 White Blood Count 26.1 K/UL (4.8-10.8) *H Red Blood Count 3.85 M/UL (4.20-5.40) L Hemoglobin 11.9 G/DL (12.0-16.0) L Hematocrit 37.1 % (37.0-47.0) Mean Corpuscular Volume 96 FL (80-99) Mean Corpuscular Hemoglobin 31.0 PG (27.0-31.0) Mean Corpuscular Hemoglobin Concent 32.1 G/DL (32.0-36.0) Red Cell Distribution Width 15.6 % (11.6-14.8) H Platelet Count 393 K/UL (150-450) Mean Platelet Volume 5.5 FL (6.5-10.1) L Neutrophils (%) (Auto) % (45.0-75.0) Lymphocytes (%) (Auto) % (20.0-45.0) Monocytes (%) (Auto) % (1.0-10.0) Eosinophils (%) (Auto) % (0.0-3.0) Basophils (%) (Auto) % (0.0-2.0) Differential Total Cells Counted 100 Neutrophils % (Manual) 97 % (45-75) H Lymphocytes % (Manual) 2 % (20-45) L Monocytes % (Manual) 1 % (1-10) Eosinophils % (Manual) 0 % (0-3) Basophils % (Manual) 0 % (0-2) Band Neutrophils 0 % (0-8) Platelet Estimate Adequate Platelet Morphology Normal Anisocytosis 1+ Sodium Level 141 MMOL/L (136-145) Potassium Level 3.5 MMOL/L (3.5-5.1) Chloride Level 107 MMOL/L (98-107) Carbon Dioxide Level 24 MMOL/L (21-32) Anion Gap 10 mmol/L (5-15) Blood Urea Nitrogen 35 mg/dL (7-18) H Creatinine 1.2 MG/DL (0.55-1.30) Estimat Glomerular Filtration Rate mL/min (>60) Glucose Level 114 MG/DL (74-106) H Calcium Level 8.8 MG/DL (8.5-10.1) Magnesium Level 1.6 MG/DL (1.8-2.4) L Vancomycin Level Trough 11.1 ug/mL (5.0-12.0) UBALDO FLORES Mar 14, 2017 18:33
[2017-03-14] MEDS: Dyna-Hex 2% Top Sol 2oz TOPIC SCH (20:42)
[2017-03-15] VITALS (7 sets, daily range): BP systolic 115–140; BP diastolic 56–86
--- NOTE | 2017-03-15 00:31 | General Progress Note ---
Assessment/Plan Status: stable Assessment/Plan Agitation encephalopathy noncompliance lacks capacity seroquel 25mg qhs Subjective Date patient seen: Mar 14, 2017 Neurologic/Psychiatric: Reports: anxiety, depressed, emotional problems Allergies: Coded Allergies: ASPIRIN (Verified Allergy, Unknown, 03/10/17) IBUPROFEN (Unverified Allergy, Unknown, 03/10/17) Subjective the pt is on continues bipap. the pt was asleep. mental condition is unchanged. the pt is still confused and lacks capacity Objective Last 24 Hour Vital Signs Date Time Temp Pulse Resp B/P (MAP) Pulse Ox O2 Delivery O2 Flow Rate FiO2 03/14/17 20:00 106 03/14/17 20:00 97.5 60 24 133/75 92 Venturi Mask 03/14/17 19:41 Venturi Mask 14.0 55 03/14/17 19:41 94 Venturi Mask 14.0 55 03/14/17 16:00 120 03/14/17 16:00 97.7 114 22 129/82 92 Venturi Mask 55 03/14/17 12:00 97.3 111 18 152/92 90 Venturi Mask 55 03/14/17 11:34 111 03/14/17 09:28 97.1 125 20 142/82 93 Venturi Mask 55 03/14/17 08:00 97.7 109 20 156/103 92 Venturi Mask 55 03/14/17 07:51 107 03/14/17 07:20 95 Venturi Mask 14.0 55 03/14/17 07:20 Venturi Mask 14.0 55 03/14/17 04:00 97.3 110 22 130/96 92 Venturi Mask 55 03/14/17 04:00 110 Laboratory Tests 03/14/17 05:15: White Blood Count 26.1*H, Red Blood Count 3.85L, Hemoglobin 11.9L, Hematocrit 37.1, Mean Corpuscular Volume 96, Mean Corpuscular Hemoglobin 31.0, Mean Corpuscular Hemoglobin Concent 32.1, Red Cell Distribution Width 15.6H, Platelet Count 393, Mean Platelet Volume 5.5L, Neutrophils (%) (Auto) , Lymphocytes (%) (Auto) , Monocytes (%) (Auto) , Eosinophils (%) (Auto) , Basophils (%) (Auto) , Differential Total Cells Counted 100, Neutrophils % ( Manual) 97H, Lymphocytes % (Manual) 2L, Monocytes % (Manual) 1, Eosinophils % ( Manual) 0, Basophils % (Manual) 0, Band Neutrophils 0, Platelet Estimate Adequate, Platelet Morphology Normal, Anisocytosis 1+, Sodium Level 141, Potassium Level 3.5, Chloride Level 107, Carbon Dioxide Level 24, Anion Gap 10, Blood Urea Nitrogen 35H, Creatinine 1.2, Estimat Glomerular Filtration Rate , Glucose Level 114H, Calcium Level 8.8, Magnesium Level 1.6L, Vancomycin Level Trough 11.1 Height (Feet): 5 Height (Inches): 3.00 Weight (Pounds): 122 General Appearance: no apparent distress, alert, confused, cachetic Neurologic: alert, responsive, disoriented, depressed affect Mike Magana M.D. Mar 15, 2017 00:31
[2017-03-15] MEDS ORDERED: Vancomycin 1gm in D5W 275ml IVPB SCH (04:00)
[2017-03-15 05:28] LABS: HEMATOCRIT 36.8 % (37.0-47.0); HEMOGLOBIN 12.1 G/DL (12.0-16.0); MEAN CORPUSCULAR VOLUME 96 FL (80-99); PLATELET COUNT 381 K/UL (150-450); RED BLOOD COUNT 3.85 M/UL (4.20-5.40); RED CELL DISTRIBUTION WIDTH 15.5 % (11.6-14.8)
[2017-03-15 06:06] LABS: WHITE BLOOD COUNT 26.3 K/UL (4.8-10.8)
[2017-03-15 06:10] LABS: ALANINE AMINOTRANSFERASE 7 U/L (12-78); ALBUMIN 1.4 G/DL (3.4-5.0); ALBUMIN/GLOBULIN RATIO 0.3 (1.0-2.7); ALKALINE PHOSPHATASE 66 U/L (46-116); ANION GAP 14 mmol/L (5-15); ASPARTATE AMINO TRANSFERASE 12 U/L (15-37); BILIRUBIN,TOTAL 0.3 MG/DL (0.2-1.0); BLOOD UREA NITROGEN 34 mg/dL (7-18); CALCIUM 8.8 MG/DL (8.5-10.1); CARBON DIOXIDE 22 MMOL/L (21-32); CHLORIDE 108 MMOL/L (98-107); CREATININE 1.1 MG/DL (0.55-1.30); POTASSIUM 2.9 MMOL/L (3.5-5.1); SODIUM 144 MMOL/L (136-145)
--- NOTE | 2017-03-15 08:28 | Pulmonology Progress Note ---
Assessment/Plan Problems: (1) Respiratory failure with hypoxia (2) Pulmonary edema (3) Pneumonia (4) Diastolic CHF (5) At high risk for aspiration (6) Alzheimer's dementia Assessment/Plan has central line now off bipapa on lasix and antibiotics wbc still high [facility] and [facility] and end of life care. pt failed swallow study, pt and her DPOA don't want any artificial feeding, Subjective ROS Limited/Unobtainable: No Constitutional: Reports: no symptoms HEENT: Repors: no symptoms Respiratory: Reports: no symptoms Allergies: Coded Allergies: ASPIRIN (Verified Allergy, Unknown, 03/10/17) IBUPROFEN (Unverified Allergy, Unknown, 03/10/17) Objective Last 24 Hour Vital Signs Date Time Temp Pulse Resp B/P (MAP) Pulse Ox O2 Delivery O2 Flow Rate FiO2 03/15/17 04:19 115 03/15/17 04:00 97.3 106 18 128/82 95 Venturi Mask 55 03/15/17 00:00 134 03/15/17 00:00 97.4 114 24 138/85 94 Venturi Mask 55 03/14/17 20:00 106 03/14/17 20:00 97.5 60 24 133/75 92 Venturi Mask 03/14/17 19:41 Venturi Mask 14.0 55 03/14/17 19:41 94 Venturi Mask 14.0 55 03/14/17 16:00 120 03/14/17 16:00 97.7 114 22 129/82 92 Venturi Mask 55 03/14/17 12:00 97.3 111 18 152/92 90 Venturi Mask 55 03/14/17 11:34 111 03/14/17 09:28 97.1 125 20 142/82 93 Venturi Mask 55 Objective still on venturi mask refusing NG tube General Appearance: cachetic HEENT: normocephalic, atraumatic Respiratory/Chest: chest wall non-tender, crackles/rales Breasts: no masses Cardiovascular: normal peripheral pulses, normal rate Abdomen: normal bowel sounds, soft, non tender Extremities: no clubbing 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, no motor/sensory deficits Lymphatic: no neck adenopathy Laboratory Tests 03/15/17 03:50: White Blood Count 26.3*H, Red Blood Count 3.85L, Hemoglobin 12.1, Hematocrit 36.8L, Mean Corpuscular Volume 96, Mean Corpuscular Hemoglobin 31.5H, Mean Corpuscular Hemoglobin Concent 32.9, Red Cell Distribution Width 15.5H, Platelet Count 381, Mean Platelet Volume 6.7, Neutrophils (%) (Auto) , Lymphocytes (%) (Auto) , Monocytes (%) (Auto) , Eosinophils (%) (Auto) , Basophils (%) (Auto) , Neutrophils % (Manual) [Pending], Lymphocytes % (Manual) [Pending], Platelet Estimate [Pending], Platelet Morphology [Pending], Sodium Level 144, Potassium Level 2.9L, Chloride Level 108H, Carbon Dioxide Level 22, Anion Gap 14, Blood Urea Nitrogen 34H, Creatinine 1.1, Estimat Glomerular Filtration Rate , Glucose Level 106, Calcium Level 8.8, Total Bilirubin 0.3, Aspartate Amino Transf (AST/SGOT) 12L, Alanine Aminotransferase (ALT/SGPT) 7L, Alkaline Phosphatase 66, Pro-B-Type Natriuretic Peptide 73975N, Total Protein 6.1L, Albumin 1.4L, Globulin 4.7, Albumin/Globulin Ratio 0.3L Current Medications Medications (Trade) Dose Ordered Sig/Daysi Route PRN Reason Start Time Stop Time Status Last Admin Dose Admin Acetaminophen (Tylenol) 650 mg Q4H PRN ORAL fever 03/10/17 04:45 04/09/17 04:44 Al Hydroxide/Mg Hydroxide (Mylanta II) 30 ml Q6H PRN ORAL dyspepsia 03/10/17 04:45 04/09/17 04:44 Albuterol/ Ipratropium (Albuterol/ Ipratropium) 3 ml Q4H PRN HHN Shortness of Breath 03/13/17 08:15 03/18/17 08:14 Cefepime HCl 2 gm/ Dextrose 110 ml @ 220 mls/hr Q24H IVPB 03/10/17 09:00 03/17/17 08:59 03/14/17 10:11 Chlorhexidine Gluconate (Francisca-Hex 2%) 1 applic DAILY@2000 TOPIC 03/10/17 20:00 04/09/17 19:59 03/14/17 20:42 Dextrose/ Electrolytes 1,000 ml @ 50 mls/hr Q20H IV 03/15/17 08:30 04/14/17 08:29 Furosemide (Lasix) 40 mg TID IV 03/14/17 15:00 04/13/17 14:59 03/14/17 20:42 Heparin Sodium (Porcine) (Heparin 5000 units/ml) 5,000 units EVERY 12 HOURS SUBQ 03/10/17 09:00 04/09/17 08:59 03/14/17 20:45 Levofloxacin 50 ml @ 50 mls/hr Q24H IVPB 03/12/17 15:00 03/19/17 14:59 03/14/17 15:11 Nitroglycerin (Ntg) 0.4 mg Q5M PRN SL Prn Chest Pain 03/10/17 04:45 04/09/17 04:44 Ondansetron HCl (Zofran) 4 mg Q6H PRN IVP Nausea & Vomiting 03/10/17 04:45 04/09/17 04:44 Polyethylene Glycol (Miralax) 17 gm DAILYPRN PRN ORAL Constipation 03/10/17 04:45 04/09/17 04:44 Potassium Chloride 100 ml @ 50 mls/hr Q2H IVPB 03/15/17 07:30 03/15/17 15:29 03/15/17 07:48 Promethazine HCl/ Codeine (Phenergan with Codeine) 5 ml Q4H PRN ORAL For Cough 03/10/17 04:45 04/09/17 04:44 03/15/17 02:38 Quetiapine Fumarate (SEROquel) 25 mg QHS ORAL 03/14/17 21:00 04/13/17 20:59 Temazepam (Restoril) 15 mg HSPRN PRN ORAL Insomnia 03/10/17 04:45 03/17/17 04:44 03/12/17 22:31 Vancomycin HCl (Vanco rx to dose) 1 ea DAILY PRN MISC Per rx protocol 03/10/17 04:45 04/09/17 04:44 Vancomycin HCl 1 gm/Dextrose 275 ml @ 183.708 mls/hr Q24H IVPB 03/15/17 04:00 03/20/17 03:59 03/15/17 04:35 KD BEGUM Mar 15, 2017 08:28
[2017-03-15] MEDS ORDERED: D5 1/2NS w/KCl 20mEq 1,000 ML IV SCH (08:30)
[2017-03-15] MEDS: Cefepime 2gm in D5W 110ml IVPB SCH (09:18)
[2017-03-15] MEDS: Heparin 5000 units/ml inj SUBQ SCH ×2 (09:20→21:37)
[2017-03-15] MEDS ORDERED: NS 275ml ONE (09:32)
[2017-03-15] MEDS ORDERED: D5 1/4NS 1000ml IV ONE (09:32)
[2017-03-15] MEDS ORDERED: Tubing IV Secondary IV ONE (09:32)
--- NOTE | 2017-03-15 11:36 | Diagnostic Imaging Report ---
Indication: Dyspnea Comparison: 03/14/17 A single view chest radiograph was obtained. Findings: Interstitial and nodular opacities again demonstrated bilaterally without significant change. Bilateral pleural effusions are suspected. PICC line is stable. In pression: No change from the prior day
--- NOTE | 2017-03-15 11:58 | Diagnostic Imaging Report ---
APPROVED REPORT CPT Code: 43877 Present Symptoms Shortness of breath BILATERAL: Imaging reveals a patent deep venous system bilaterally. There is no evidence of thrombus within the femoral, popliteal or tibial segments. The greater saphenous veins are also within normal limits. Doppler indicates normal spontaneous flow within these segments.
--- NOTE | 2017-03-15 11:58 | Diagnostic Imaging Report ---
APPROVED REPORT CPT Code: 56142 Present Symptoms Shortness of breath BILATERAL: Imaging reveals a patent deep venous system bilaterally. There is no evidence of thrombus within the femoral, popliteal or tibial segments. The greater saphenous veins are also within normal limits. Doppler indicates normal spontaneous flow within these segments.
--- NOTE | 2017-03-15 11:58 | Diagnostic Imaging Report ---
APPROVED REPORT CPT Code: 83583 Present Symptoms Shortness of breath BILATERAL: Imaging reveals a patent deep venous system bilaterally. There is no evidence of thrombus within the femoral, popliteal or tibial segments. The greater saphenous veins are also within normal limits. Doppler indicates normal spontaneous flow within these segments.
[2017-03-15] MEDS: Levofloxacin 250mg/D5W 50ml IVPB SCH (15:22)
--- NOTE | 2017-03-15 15:22 | General Progress Note ---
Assessment/Plan Status: stable Assessment/Plan Agitation encephalopathy noncompliance lacks capacity seroquel 25mg qhs Subjective Neurologic/Psychiatric: Reports: anxiety, depressed, emotional problems Allergies: Coded Allergies: ASPIRIN (Verified Allergy, Unknown, 03/10/17) IBUPROFEN (Unverified Allergy, Unknown, 03/10/17) Subjective the pt is on continues bipap. the pt failed swallow study confused heart unstable Objective Last 24 Hour Vital Signs Date Time Temp Pulse Resp B/P (MAP) Pulse Ox O2 Delivery O2 Flow Rate FiO2 03/15/17 12:01 115 03/15/17 12:00 96.4 102 18 132/72 96 Venturi Mask 55 03/15/17 08:57 96.4 113 19 131/78 99 Venturi Mask 55 03/15/17 08:00 111 03/15/17 07:45 91 Venturi Mask 14.0 55 03/15/17 07:45 Venturi Mask 14.0 55 03/15/17 04:19 115 03/15/17 04:00 97.3 106 18 128/82 95 Venturi Mask 55 03/15/17 00:00 134 03/15/17 00:00 97.4 114 24 138/85 94 Venturi Mask 55 03/14/17 20:00 106 03/14/17 20:00 97.5 60 24 133/75 92 Venturi Mask 03/14/17 19:41 Venturi Mask 14.0 55 03/14/17 19:41 94 Venturi Mask 14.0 55 03/14/17 16:00 120 03/14/17 16:00 97.7 114 22 129/82 92 Venturi Mask 55 Intake and Output 03/15/17 03/16/17 19:00 07:00 Intake Total 310 ml Output Total 735 ml Balance -425 ml Intake IV Total 310 ml Output Urine Total 735 ml # Voids 2 Laboratory Tests 03/15/17 03:50: White Blood Count 26.3*H, Red Blood Count 3.85L, Hemoglobin 12.1, Hematocrit 36.8L, Mean Corpuscular Volume 96, Mean Corpuscular Hemoglobin 31.5H, Mean Corpuscular Hemoglobin Concent 32.9, Red Cell Distribution Width 15.5H, Platelet Count 381, Mean Platelet Volume 6.7, Neutrophils (%) (Auto) , Lymphocytes (%) (Auto) , Monocytes (%) (Auto) , Eosinophils (%) (Auto) , Basophils (%) (Auto) , Differential Total Cells Counted 100, Neutrophils % ( Manual) 91H, Lymphocytes % (Manual) 2L, Monocytes % (Manual) 5, Eosinophils % ( Manual) 0, Basophils % (Manual) 0, Band Neutrophils 2, Platelet Estimate Adequate, Platelet Morphology Normal, Anisocytosis 1+, Sodium Level 144, Potassium Level 2.9L, Chloride Level 108H, Carbon Dioxide Level 22, Anion Gap 14 , Blood Urea Nitrogen 34H, Creatinine 1.1, Estimat Glomerular Filtration Rate , Glucose Level 106, Calcium Level 8.8, Total Bilirubin 0.3, Aspartate Amino Transf (AST/SGOT) 12L, Alanine Aminotransferase (ALT/SGPT) 7L, Alkaline Phosphatase 66, Pro-B-Type Natriuretic Peptide 41409H, Total Protein 6.1L, Albumin 1.4L, Globulin 4.7, Albumin/Globulin Ratio 0.3L Height (Feet): 5 Height (Inches): 3.00 Weight (Pounds): 122 General Appearance: no apparent distress, alert, confused Neurologic: alert, responsive, depressed affect Mike Magana M.D. Mar 15, 2017 15:22
--- NOTE | 2017-03-15 15:37 | Cardiology Progress Note ---
Assessment/Plan Assessment/Plan 1. Respiratory insufficiency. 2. Systolic as well as diastolic heart failure. 3. Pleural effusions. 4. Peripheral vascular disease. 5. History of hypertension. 6. Low body mass index. 7. pulm infiltrate 8. trachy tele noted sinus on diuretic tid however i doubt present pulm infiltrate related to purely chf underlying pulm pathology brunoanamika noted possible hospice care in near future Subjective ROS Limited/Unobtainable: Yes Subjective c/o pain with face mask Objective Last 24 Hour Vital Signs Date Time Temp Pulse Resp B/P (MAP) Pulse Ox O2 Delivery O2 Flow Rate FiO2 03/15/17 12:01 115 03/15/17 12:00 96.4 102 18 132/72 96 Venturi Mask 55 03/15/17 08:57 96.4 113 19 131/78 99 Venturi Mask 55 03/15/17 08:00 111 03/15/17 07:45 91 Venturi Mask 14.0 55 03/15/17 07:45 Venturi Mask 14.0 55 03/15/17 04:19 115 03/15/17 04:00 97.3 106 18 128/82 95 Venturi Mask 55 03/15/17 00:00 134 03/15/17 00:00 97.4 114 24 138/85 94 Venturi Mask 55 03/14/17 20:00 106 03/14/17 20:00 97.5 60 24 133/75 92 Venturi Mask 03/14/17 19:41 Venturi Mask 14.0 55 03/14/17 19:41 94 Venturi Mask 14.0 55 03/14/17 16:00 120 03/14/17 16:00 97.7 114 22 129/82 92 Venturi Mask 55 General Appearance: no apparent distress, alert Cardiovascular: normal rate Respiratory/Chest: crackles/rales - ant Abdomen: normal bowel sounds, non tender, soft Extremities: no swelling Intake and Output 03/15/17 03/16/17 19:00 07:00 Intake Total 310 ml Output Total 985 ml Balance -675 ml Intake IV Total 310 ml Output Urine Total 985 ml # Voids 3 Laboratory Tests Test 03/15/17 03:50 White Blood Count 26.3 K/UL (4.8-10.8) *H Red Blood Count 3.85 M/UL (4.20-5.40) L Hemoglobin 12.1 G/DL (12.0-16.0) Hematocrit 36.8 % (37.0-47.0) L Mean Corpuscular Volume 96 FL (80-99) Mean Corpuscular Hemoglobin 31.5 PG (27.0-31.0) H Mean Corpuscular Hemoglobin Concent 32.9 G/DL (32.0-36.0) Red Cell Distribution Width 15.5 % (11.6-14.8) H Platelet Count 381 K/UL (150-450) Mean Platelet Volume 6.7 FL (6.5-10.1) Neutrophils (%) (Auto) % (45.0-75.0) Lymphocytes (%) (Auto) % (20.0-45.0) Monocytes (%) (Auto) % (1.0-10.0) Eosinophils (%) (Auto) % (0.0-3.0) Basophils (%) (Auto) % (0.0-2.0) Differential Total Cells Counted 100 Neutrophils % (Manual) 91 % (45-75) H Lymphocytes % (Manual) 2 % (20-45) L Monocytes % (Manual) 5 % (1-10) Eosinophils % (Manual) 0 % (0-3) Basophils % (Manual) 0 % (0-2) Band Neutrophils 2 % (0-8) Platelet Estimate Adequate Platelet Morphology Normal Anisocytosis 1+ Sodium Level 144 MMOL/L (136-145) Potassium Level 2.9 MMOL/L (3.5-5.1) L Chloride Level 108 MMOL/L (98-107) H Carbon Dioxide Level 22 MMOL/L (21-32) Anion Gap 14 mmol/L (5-15) Blood Urea Nitrogen 34 mg/dL (7-18) H Creatinine 1.1 MG/DL (0.55-1.30) Estimat Glomerular Filtration Rate mL/min (>60) Glucose Level 106 MG/DL (74-106) Calcium Level 8.8 MG/DL (8.5-10.1) Total Bilirubin 0.3 MG/DL (0.2-1.0) Aspartate Amino Transf (AST/SGOT) 12 U/L (15-37) L Alanine Aminotransferase (ALT/SGPT) 7 U/L (12-78) L Alkaline Phosphatase 66 U/L (46-116) Pro-B-Type Natriuretic Peptide 39113 pg/mL (0-125) H Total Protein 6.1 G/DL (6.4-8.2) L Albumin 1.4 G/DL (3.4-5.0) L Globulin 4.7 g/dL Albumin/Globulin Ratio 0.3 (1.0-2.7) L Microbiology Date/Time Source Procedure Growth Status 03/14/17 12:00 Sputum Expectorated Gram Stain - Final Resulted 03/14/17 12:00 Sputum Expectorated Sputum Culture Pending Resulted UBALDO FLORES Mar 15, 2017 15:37
[2017-03-15] MEDS ORDERED: Promethazine/Codeine 5ml UD ORAL PRN (16:45)
[2017-03-15] MEDS ORDERED: Nitroglycerin Subl 0.4mg tab SL PRN (16:45)
[2017-03-15] MEDS ORDERED: Mylanta II UD 30ml ORAL PRN (16:45)
[2017-03-15] MEDS ORDERED: Miralax 17gm pkt ORAL PRN (17:00)
[2017-03-15] MEDS ORDERED: Albuterol/Ipratropium 3ml neb HHN PRN (17:00)
--- NOTE | 2017-03-15 17:03 | Infectious Diseases Prog Note ---
Assessment/Plan Assessment/Plan A: The patient is an 86-year-old female with Leukocytosis, improving Respiratory failure , SP pneumonia Rule out bacteremia Afebrile. EF: 40% PICC, SP 03/11 ALOC , SP History of encephalopathy. Hypertension. GERD. History of cystitis. Osteoporosis. Gout PLAN: cont on vancomycin and cefepime day # 6 / , add Levaquin d # 5 /7 Monitor CBC. Monitor BMP. Monitor cultures (blood, urine, and sputum). Continue respiratory support. Monitor chest x-ray. U legionella Ag Ct C/A/P ro abscess ( pt has persistent WBC ) Subjective Constitutional: Denies: no symptoms, fever, chills, fatigue, anorexia, drenching sweats, other Allergies: Coded Allergies: ASPIRIN (Verified Allergy, Unknown, 03/10/17) IBUPROFEN (Unverified Allergy, Unknown, 03/10/17) Subjective no acute event afebrile Objective Vital Signs Last 24 Hour Vital Signs Date Time Temp Pulse Resp B/P (MAP) Pulse Ox O2 Delivery O2 Flow Rate FiO2 03/15/17 16:00 101 03/15/17 16:00 97.7 87 18 115/86 98 Venturi Mask 55 03/15/17 12:01 115 03/15/17 12:00 96.4 102 18 132/72 96 Venturi Mask 55 03/15/17 08:57 96.4 113 19 131/78 99 Venturi Mask 55 03/15/17 08:00 111 03/15/17 07:45 91 Venturi Mask 14.0 55 03/15/17 07:45 Venturi Mask 14.0 55 03/15/17 04:19 115 03/15/17 04:00 97.3 106 18 128/82 95 Venturi Mask 55 03/15/17 00:00 134 03/15/17 00:00 97.4 114 24 138/85 94 Venturi Mask 55 03/14/17 20:00 106 03/14/17 20:00 97.5 60 24 133/75 92 Venturi Mask 03/14/17 19:41 Venturi Mask 14.0 55 03/14/17 19:41 94 Venturi Mask 14.0 55 Height (Feet): 5 Height (Inches): 3.00 Weight (Pounds): 122 HEENT: mucous membranes moist Respiratory/Chest: normal breath sounds Cardiovascular: regular rhythm Abdomen: soft, non tender Microbiology Date/Time Source Procedure Growth Status 03/14/17 12:00 Sputum Expectorated Gram Stain - Final Resulted 03/14/17 12:00 Sputum Expectorated Sputum Culture Pending Resulted Laboratory Tests Test 03/15/17 03:50 White Blood Count 26.3 K/UL (4.8-10.8) *H Red Blood Count 3.85 M/UL (4.20-5.40) L Hemoglobin 12.1 G/DL (12.0-16.0) Hematocrit 36.8 % (37.0-47.0) L Mean Corpuscular Volume 96 FL (80-99) Mean Corpuscular Hemoglobin 31.5 PG (27.0-31.0) H Mean Corpuscular Hemoglobin Concent 32.9 G/DL (32.0-36.0) Red Cell Distribution Width 15.5 % (11.6-14.8) H Platelet Count 381 K/UL (150-450) Mean Platelet Volume 6.7 FL (6.5-10.1) Neutrophils (%) (Auto) % (45.0-75.0) Lymphocytes (%) (Auto) % (20.0-45.0) Monocytes (%) (Auto) % (1.0-10.0) Eosinophils (%) (Auto) % (0.0-3.0) Basophils (%) (Auto) % (0.0-2.0) Differential Total Cells Counted 100 Neutrophils % (Manual) 91 % (45-75) H Lymphocytes % (Manual) 2 % (20-45) L Monocytes % (Manual) 5 % (1-10) Eosinophils % (Manual) 0 % (0-3) Basophils % (Manual) 0 % (0-2) Band Neutrophils 2 % (0-8) Platelet Estimate Adequate Platelet Morphology Normal Anisocytosis 1+ Sodium Level 144 MMOL/L (136-145) Potassium Level 2.9 MMOL/L (3.5-5.1) L Chloride Level 108 MMOL/L (98-107) H Carbon Dioxide Level 22 MMOL/L (21-32) Anion Gap 14 mmol/L (5-15) Blood Urea Nitrogen 34 mg/dL (7-18) H Creatinine 1.1 MG/DL (0.55-1.30) Estimat Glomerular Filtration Rate mL/min (>60) Glucose Level 106 MG/DL (74-106) Calcium Level 8.8 MG/DL (8.5-10.1) Total Bilirubin 0.3 MG/DL (0.2-1.0) Aspartate Amino Transf (AST/SGOT) 12 U/L (15-37) L Alanine Aminotransferase (ALT/SGPT) 7 U/L (12-78) L Alkaline Phosphatase 66 U/L (46-116) Pro-B-Type Natriuretic Peptide 69613 pg/mL (0-125) H Total Protein 6.1 G/DL (6.4-8.2) L Albumin 1.4 G/DL (3.4-5.0) L Globulin 4.7 g/dL Albumin/Globulin Ratio 0.3 (1.0-2.7) L Current Medications Medications (Trade) Dose Ordered Sig/Daysi Route PRN Reason Start Time Stop Time Status Last Admin Dose Admin Acetaminophen (Tylenol) 650 mg Q4H PRN ORAL fever 03/15/17 16:45 04/09/17 04:44 Al Hydroxide/Mg Hydroxide (Mylanta II) 30 ml Q6H PRN ORAL dyspepsia 03/15/17 16:45 04/09/17 04:44 Albuterol/ Ipratropium (Albuterol/ Ipratropium) 3 ml Q4H PRN HHN Shortness of Breath 03/15/17 17:00 03/18/17 16:59 Cefepime HCl 2 gm/ Sodium Chloride 110 ml @ 220 mls/hr Q24H IVPB 03/16/17 09:00 03/17/17 08:59 Chlorhexidine Gluconate (Francisca-Hex 2%) 1 applic DAILY@2000 TOPIC 03/15/17 20:00 04/09/17 19:59 Dextrose/ Electrolytes 1,000 ml @ 50 mls/hr Q20H IV 03/15/17 17:00 04/14/17 16:59 Furosemide (Lasix) 40 mg TID IV 03/15/17 18:00 04/13/17 14:59 Heparin Sodium (Porcine) (Heparin 5000 units/ml) 5,000 units EVERY 12 HOURS SUBQ 03/15/17 21:00 04/09/17 08:59 Levofloxacin 50 ml @ 50 mls/hr Q24H IVPB 03/16/17 15:00 03/19/17 14:59 Nitroglycerin (Ntg) 0.4 mg Q5M PRN SL Prn Chest Pain 03/15/17 16:45 04/09/17 04:44 Olanzapine (ZyPREXA) 5 mg BEDTIME ORAL 03/15/17 21:00 04/14/17 20:59 Ondansetron HCl (Zofran) 4 mg Q6H PRN IVP Nausea & Vomiting 03/15/17 16:45 04/09/17 04:44 Polyethylene Glycol (Miralax) 17 gm DAILYPRN PRN ORAL Constipation 03/15/17 17:00 04/14/17 16:59 Promethazine HCl/ Codeine (Phenergan with Codeine) 5 ml Q4H PRN ORAL For Cough 03/15/17 16:45 04/09/17 04:44 Temazepam (Restoril) 15 mg HSPRN PRN ORAL Insomnia 03/15/17 17:00 03/22/17 16:59 Vancomycin HCl (Vanco rx to dose) 1 ea DAILYPRN PRN MISC Per rx protocol 03/15/17 17:00 04/14/17 16:59 Vancomycin HCl 1 gm/Dextrose 275 ml @ 183.708 mls/hr Q24H IVPB 03/16/17 04:00 03/20/17 03:59 GIAN PATRICIA M.D. Mar 15, 2017 17:03
[2017-03-15] MEDS: D5 1/2NS w/KCl 20mEq 1,000 ML IV SCH (17:23)
[2017-03-15] MEDS: Dyna-Hex 2% Top Sol 2oz TOPIC SCH (21:36)
[2017-03-16] VITALS: BP 134/72
[2017-03-16 04:00] VITALS: BP 120/65
[2017-03-16] MEDS ORDERED: Vancomycin 1 GM in D5W 275 ML IVPB SCH (04:00)
[2017-03-16 08:00] VITALS: BP 104/80
[2017-03-16] MEDS ORDERED: Cefepime HCl 2 GM in NS 110 ML IVPB SCH (09:00)
[2017-03-16] MEDS: Heparin 5000 units/ml inj SUBQ SCH ×2 (09:47→21:19)
[2017-03-16 12:00] VITALS: BP 128/78
--- NOTE | 2017-03-16 12:15 | Infectious Diseases Prog Note ---
Assessment/Plan Assessment/Plan A: The patient is an 86-year-old female with Leukocytosis, persistent Respiratory failure , SP pneumonia Scx: Nl sherlyn legionella Ab +, IgM : P Rule out bacteremia Afebrile EF: 40% PICC, SP 03/11 ALOC , SP History of encephalopathy. Hypertension. GERD. History of cystitis. Osteoporosis. Gout PLAN: cont Levaquin d # 6 /7-10 DC vancomycin and cefepime day # 7 Monitor CBC. Monitor BMP. Monitor cultures (blood, urine, and sputum). Continue respiratory support. Monitor chest x-ray. U legionella Ag :P family refused CT , asking for hospice care Subjective Allergies: Coded Allergies: ASPIRIN (Verified Allergy, Unknown, 03/10/17) IBUPROFEN (Unverified Allergy, Unknown, 03/10/17) Subjective family refused CT , asking for hospice care Objective Vital Signs Last 24 Hour Vital Signs Date Time Temp Pulse Resp B/P (MAP) Pulse Ox O2 Delivery O2 Flow Rate FiO2 03/16/17 08:00 97.7 100 20 104/80 100 Venturi Mask 11.0 03/16/17 07:09 94 Venturi Mask 14.0 55 03/16/17 07:09 Venturi Mask 14.0 55 03/16/17 04:00 96.8 120 18 120/65 Venturi Mask 8.0 03/16/17 00:00 97.2 125 18 134/72 93 Venturi Mask 8.0 03/15/17 20:00 96.8 115 22 120/56 94 Venturi Mask 8.0 03/15/17 19:49 Venturi Mask 14.0 55 03/15/17 19:49 95 Venturi Mask 14.0 55 03/15/17 17:55 96.8 103 22 140/62 94 Venturi Mask 8.0 03/15/17 16:00 101 03/15/17 16:00 97.7 87 18 115/86 98 Venturi Mask 55 Height (Feet): 5 Height (Inches): 3.00 Weight (Pounds): 122 HEENT: anicteric Respiratory/Chest: no respiratory distress Cardiovascular: no gallop/murmur Microbiology Date/Time Source Procedure Growth Status 03/14/17 12:00 Sputum Expectorated Gram Stain - Final Complete 03/14/17 12:00 Sputum Expectorated Sputum Culture - Final NORMAL UPPER RESPIRATORY SHERLYN PRESENT Complete Current Medications Medications (Trade) Dose Ordered Sig/Daysi Route PRN Reason Start Time Stop Time Status Last Admin Dose Admin Acetaminophen (Tylenol) 650 mg Q4H PRN ORAL fever 03/15/17 16:45 04/09/17 04:44 03/16/17 06:29 Al Hydroxide/Mg Hydroxide (Mylanta II) 30 ml Q6H PRN ORAL dyspepsia 03/15/17 16:45 04/09/17 04:44 Albuterol/ Ipratropium (Albuterol/ Ipratropium) 3 ml Q4H PRN HHN Shortness of Breath 03/15/17 17:00 03/18/17 16:59 Cefepime HCl 2 gm/ Sodium Chloride 110 ml @ 220 mls/hr Q24H IVPB 03/16/17 09:00 03/17/17 08:59 03/16/17 09:45 Chlorhexidine Gluconate (Francisca-Hex 2%) 1 applic DAILY@2000 TOPIC 03/15/17 20:00 04/09/17 19:59 03/15/17 21:36 Dextrose/ Electrolytes 1,000 ml @ 50 mls/hr Q20H IV 03/15/17 17:00 04/14/17 16:59 03/15/17 17:23 Furosemide (Lasix) 40 mg TID IV 03/15/17 18:00 04/13/17 14:59 03/16/17 09:45 Heparin Sodium (Porcine) (Heparin 5000 units/ml) 5,000 units EVERY 12 HOURS SUBQ 03/15/17 21:00 04/09/17 08:59 03/16/17 09:47 Levofloxacin 50 ml @ 50 mls/hr Q24H IVPB 03/16/17 15:00 03/19/17 14:59 Nitroglycerin (Ntg) 0.4 mg Q5M PRN SL Prn Chest Pain 03/15/17 16:45 04/09/17 04:44 Olanzapine (ZyPREXA) 5 mg BEDTIME ORAL 03/15/17 21:00 04/14/17 20:59 03/15/17 21:36 Ondansetron HCl (Zofran) 4 mg Q6H PRN IVP Nausea & Vomiting 03/15/17 16:45 04/09/17 04:44 Polyethylene Glycol (Miralax) 17 gm DAILYPRN PRN ORAL Constipation 03/15/17 17:00 04/14/17 16:59 Promethazine HCl/ Codeine (Phenergan with Codeine) 5 ml Q4H PRN ORAL For Cough 03/15/17 16:45 04/09/17 04:44 Temazepam (Restoril) 15 mg HSPRN PRN ORAL Insomnia 03/15/17 17:00 03/22/17 16:59 Vancomycin HCl (Vanco rx to dose) 1 ea DAILYPRN PRN MISC Per rx protocol 03/15/17 17:00 04/14/17 16:59 Vancomycin HCl 1 gm/Dextrose 275 ml @ 183.708 mls/hr Q24H IVPB 03/16/17 04:00 03/20/17 03:59 03/16/17 03:41 GIAN PATRICIA M.D. Mar 16, 2017 12:15
[2017-03-16] MEDS: D5 1/2NS w/KCl 20mEq 1,000 ML IV SCH (13:13)
[2017-03-16] MEDS ORDERED: Morphine Sulfate 4mg/ml Inj IVP PRN (15:30)
[2017-03-16 16:00] VITALS: BP 104/51
--- NOTE | 2017-03-16 17:59 | Pulmonology Progress Note ---
Assessment/Plan Problems: (1) Respiratory failure with hypoxia (2) Pulmonary edema (3) Pneumonia (4) Diastolic CHF (5) At high risk for aspiration (6) Alzheimer's dementia Assessment/Plan on lasix and antibiotics wbc still high [facility] and hosp[facility] and end of life care. pt failed swallow study, pt and her DPOA don't want any artificial feeding, Subjective ROS Limited/Unobtainable: Yes Interval Events: comfortable Allergies: Coded Allergies: ASPIRIN (Verified Allergy, Unknown, 03/10/17) IBUPROFEN (Unverified Allergy, Unknown, 03/10/17) Objective Last 24 Hour Vital Signs Date Time Temp Pulse Resp B/P (MAP) Pulse Ox O2 Delivery O2 Flow Rate FiO2 03/16/17 16:00 97.9 78 20 104/51 89 Venturi Mask 11.0 03/16/17 12:00 97.3 115 18 128/78 94 Venturi Mask 11.0 03/16/17 12:00 97.3 100 20 128/78 96 Venturi Mask 11.0 03/16/17 08:00 97.7 100 20 104/80 87 Venturi Mask 11.0 03/16/17 07:09 94 Venturi Mask 14.0 55 03/16/17 07:09 Venturi Mask 14.0 55 03/16/17 04:00 96.8 120 18 120/65 Venturi Mask 8.0 03/16/17 00:00 97.2 125 18 134/72 93 Venturi Mask 8.0 03/15/17 20:00 96.8 115 22 120/56 94 Venturi Mask 8.0 03/15/17 19:49 Venturi Mask 14.0 55 03/15/17 19:49 95 Venturi Mask 14.0 55 Intake and Output 03/16/17 03/17/17 19:00 07:00 Intake Total 560 ml Balance 560 ml Intake IV Total 560 ml Objective General Appearance: WD/WN, no apparent distress Lines, tubes and drains: peripheral, PICC HEENT: normocephalic, anicteric Neck: non-tender, normal alignment Respiratory/Chest: chest wall non-tender, lungs clear Cardiovascular/Chest: normal rate, regular rhythm Abdomen: non tender, soft Genitourinary/Rectal: normal genital exam, normal rectal exam Extremities: normal range of motion, non-pitting Microbiology Date/Time Source Procedure Growth Status 03/14/17 12:00 Sputum Expectorated Gram Stain - Final Complete 03/14/17 12:00 Sputum Expectorated Sputum Culture - Final NORMAL UPPER RESPIRATORY RENÉ PRESENT Complete Laboratory Tests 03/16/17 13:00: Urine Legionella Antigen [Pending] Current Medications Medications (Trade) Dose Ordered Sig/Daysi Route PRN Reason Start Time Stop Time Status Last Admin Dose Admin Acetaminophen (Tylenol) 650 mg Q4H PRN ORAL fever 03/15/17 16:45 04/09/17 04:44 03/16/17 06:29 Al Hydroxide/Mg Hydroxide (Mylanta II) 30 ml Q6H PRN ORAL dyspepsia 03/15/17 16:45 04/09/17 04:44 Albuterol/ Ipratropium (Albuterol/ Ipratropium) 3 ml Q4H PRN HHN Shortness of Breath 03/15/17 17:00 03/18/17 16:59 Chlorhexidine Gluconate (Francisca-Hex 2%) 1 applic DAILY@2000 TOPIC 03/15/17 20:00 04/09/17 19:59 03/15/17 21:36 Dextrose/ Electrolytes 1,000 ml @ 50 mls/hr Q20H IV 03/15/17 17:00 04/14/17 16:59 03/16/17 13:13 Heparin Sodium (Porcine) (Heparin 5000 units/ml) 5,000 units EVERY 12 HOURS SUBQ 03/15/17 21:00 04/09/17 08:59 03/16/17 09:47 Levofloxacin 50 ml @ 50 mls/hr Q24H IVPB 03/16/17 15:00 03/19/17 14:59 03/16/17 14:46 Morphine Sulfate (Morphine Sulfate) 1 mg Q4H PRN IVP For Pain Scale 4-10 03/16/17 15:30 03/23/17 15:29 Nitroglycerin (Ntg) 0.4 mg Q5M PRN SL Prn Chest Pain 03/15/17 16:45 04/09/17 04:44 Olanzapine (ZyPREXA) 5 mg BEDTIME ORAL 03/15/17 21:00 04/14/17 20:59 03/15/17 21:36 Ondansetron HCl (Zofran) 4 mg Q6H PRN IVP Nausea & Vomiting 03/15/17 16:45 04/09/17 04:44 Polyethylene Glycol (Miralax) 17 gm DAILYPRN PRN ORAL Constipation 03/15/17 17:00 04/14/17 16:59 Promethazine HCl/ Codeine (Phenergan with Codeine) 5 ml Q4H PRN ORAL For Cough 03/15/17 16:45 04/09/17 04:44 Temazepam (Restoril) 15 mg HSPRN PRN ORAL Insomnia 03/15/17 17:00 03/22/17 16:59 KD BEGUM Mar 16, 2017 17:59
[2017-03-16 20:00] VITALS: BP 118/58
[2017-03-16] MEDS: Dyna-Hex 2% Top Sol 2oz TOPIC SCH (21:17)
[2017-03-16] MEDS ORDERED: Tubing IV Secondary IV ONE (21:19)
[2017-03-17] VITALS: BP 144/96
[2017-03-17] MEDS: Vitamin A&D Oint 2oz Tube TOPIC SCH ×2 (00:30→10:52)
[2017-03-17 03:59] VITALS: BP 116/79
[2017-03-17 08:00] VITALS: BP 141/79
[2017-03-17] MEDS: D5 1/2NS w/KCl 20mEq 1,000 ML IV SCH (09:31)
[2017-03-17] MEDS: Heparin 5000 units/ml inj SUBQ SCH (09:32)
[2017-03-17 12:00] VITALS: BP 111/70
--- NOTE | 2017-03-17 13:07 | Infectious Diseases Prog Note ---
Assessment/Plan Assessment/Plan A: The patient is an 86-year-old female with Leukocytosis, persistent Respiratory failure , SP pneumonia Scx: Nl sherlyn legionella Ab +, IgM : P Rule out bacteremia Afebrile EF: 40% PICC, SP 03/11 ALOC , SP History of encephalopathy. Hypertension. GERD. History of cystitis. Osteoporosis. Gout PLAN: cont Levaquin d # 7 /7-10 DC vancomycin and cefepime day # 7 Monitor CBC. Monitor BMP. Monitor cultures (blood, urine, and sputum). Continue respiratory support. Monitor chest x-ray. U legionella Ag :P family refused CT , asking for hospice care Subjective Constitutional: Denies: no symptoms, fever, chills, fatigue, anorexia, drenching sweats, other Allergies: Coded Allergies: ASPIRIN (Verified Allergy, Unknown, 03/10/17) IBUPROFEN (Unverified Allergy, Unknown, 03/10/17) Subjective family refused CT , asking for hospice care Objective Vital Signs Last 24 Hour Vital Signs Date Time Temp Pulse Resp B/P (MAP) Pulse Ox O2 Delivery O2 Flow Rate FiO2 03/17/17 08:50 Venturi Mask 14.0 55 03/17/17 08:00 97.2 97 17 141/79 98 Venturi Mask 55 03/17/17 07:55 96 Venturi Mask 14.0 55 03/17/17 03:59 96.0 67 20 116/79 90 Nasal Cannula 14.0 03/17/17 00:00 97.2 119 20 144/96 96 Venturi Mask 03/16/17 20:08 93 Venturi Mask 14.0 55 03/16/17 20:08 Venturi Mask 14.0 55 03/16/17 20:00 97.3 79 20 118/58 Venturi Mask 03/16/17 16:00 97.9 78 20 104/51 89 Venturi Mask 11.0 Height (Feet): 5 Height (Inches): 3.00 Weight (Pounds): 122 HEENT: anicteric Respiratory/Chest: no respiratory distress Cardiovascular: no gallop/murmur Abdomen: non distended Current Medications Medications (Trade) Dose Ordered Sig/Daysi Route PRN Reason Start Time Stop Time Status Last Admin Dose Admin Acetaminophen (Tylenol) 650 mg Q4H PRN ORAL fever 03/15/17 16:45 04/09/17 04:44 03/16/17 06:29 Al Hydroxide/Mg Hydroxide (Mylanta II) 30 ml Q6H PRN ORAL dyspepsia 03/15/17 16:45 04/09/17 04:44 Albuterol/ Ipratropium (Albuterol/ Ipratropium) 3 ml Q4H PRN HHN Shortness of Breath 03/15/17 17:00 03/18/17 16:59 Chlorhexidine Gluconate (Francisca-Hex 2%) 1 applic DAILY@2000 TOPIC 03/15/17 20:00 04/09/17 19:59 03/16/17 21:17 Dextrose/ Electrolytes 1,000 ml @ 50 mls/hr Q20H IV 03/15/17 17:00 04/14/17 16:59 03/17/17 09:31 Heparin Sodium (Porcine) (Heparin 5000 units/ml) 5,000 units EVERY 12 HOURS SUBQ 03/15/17 21:00 04/09/17 08:59 03/17/17 09:32 Levofloxacin 50 ml @ 50 mls/hr Q24H IVPB 03/16/17 15:00 03/19/17 14:59 03/16/17 14:46 Morphine Sulfate (Morphine Sulfate) 1 mg Q4H PRN IVP For Pain Scale 4-10 03/16/17 15:30 03/23/17 15:29 Nitroglycerin (Ntg) 0.4 mg Q5M PRN SL Prn Chest Pain 03/15/17 16:45 04/09/17 04:44 Olanzapine (ZyPREXA) 5 mg BEDTIME ORAL 03/15/17 21:00 04/14/17 20:59 03/16/17 21:17 Ondansetron HCl (Zofran) 4 mg Q6H PRN IVP Nausea & Vomiting 03/15/17 16:45 04/09/17 04:44 Polyethylene Glycol (Miralax) 17 gm DAILYPRN PRN ORAL Constipation 03/15/17 17:00 04/14/17 16:59 Promethazine HCl/ Codeine (Phenergan with Codeine) 5 ml Q4H PRN ORAL For Cough 03/15/17 16:45 04/09/17 04:44 Temazepam (Restoril) 15 mg HSPRN PRN ORAL Insomnia 03/15/17 17:00 03/22/17 16:59 Vitamin A/Vitamin D (A & D Oint) 1 applic EVERY 12 HOURS TOPIC 03/17/17 00:30 04/16/17 00:29 03/17/17 10:52 GIAN PATRICIA M.D. Mar 17, 2017 13:07
[2017-03-17] MEDS ORDERED: Tubing IV Secondary IV ONE (14:44)
--- NOTE | 2017-03-17 19:06 | Pulmonology Progress Note ---
Assessment/Plan Problems: (1) Respiratory failure with hypoxia (2) Pulmonary edema (3) Pneumonia (4) Diastolic CHF (5) At high risk for aspiration (6) Alzheimer's dementia Assessment/Plan dc all unnessary meds wbc still high talked to [facility] who agrees with DNR and hospice and end of life care. pt failed swallow study, pt and her DPOA don't want any artificial feeding, dc to guardian with hospice care Subjective ROS Limited/Unobtainable: No Constitutional: Reports: no symptoms HEENT: Repors: no symptoms Respiratory: Reports: no symptoms Allergies: Coded Allergies: ASPIRIN (Verified Allergy, Unknown, 03/10/17) IBUPROFEN (Unverified Allergy, Unknown, 03/10/17) Objective Last 24 Hour Vital Signs Date Time Temp Pulse Resp B/P (MAP) Pulse Ox O2 Delivery O2 Flow Rate FiO2 03/17/17 12:00 96.3 114 18 111/70 100 Venturi Mask 55 03/17/17 08:50 Venturi Mask 14.0 55 03/17/17 08:00 97.2 97 17 141/79 98 Venturi Mask 55 03/17/17 07:55 96 Venturi Mask 14.0 55 03/17/17 03:59 96.0 67 20 116/79 90 Nasal Cannula 14.0 03/17/17 00:00 97.2 119 20 144/96 96 Venturi Mask 03/16/17 20:08 93 Venturi Mask 14.0 55 03/16/17 20:08 Venturi Mask 14.0 55 03/16/17 20:00 97.3 79 20 118/58 Venturi Mask Intake and Output 03/17/17 03/18/17 19:00 07:00 # Voids 1 Objective General Appearance: WD/WN, no apparent distress Lines, tubes and drains: peripheral, PICC HEENT: normocephalic, anicteric Neck: non-tender, normal alignment Respiratory/Chest: chest wall non-tender, lungs clear Cardiovascular/Chest: normal rate, regular rhythm Abdomen: non tender, soft Genitourinary/Rectal: normal genital exam, normal rectal exam Extremities: normal range of motion, non-pitting KD BEGUM Mar 17, 2017 19:06
--- NOTE | 2017-03-17 19:16 | General Progress Note ---
Assessment/Plan Assessment/Plan Agitation encephalopathy noncompliance lacks capacity seroquel 25mg qhs Subjective Date patient seen: Mar 16, 2017 Allergies: Coded Allergies: ASPIRIN (Verified Allergy, Unknown, 03/10/17) IBUPROFEN (Unverified Allergy, Unknown, 03/10/17) Subjective the pt is on continues bipap. Objective Last 24 Hour Vital Signs Date Time Temp Pulse Resp B/P (MAP) Pulse Ox O2 Delivery O2 Flow Rate FiO2 03/17/17 12:00 96.3 114 18 111/70 100 Venturi Mask 55 03/17/17 08:50 Venturi Mask 14.0 55 03/17/17 08:00 97.2 97 17 141/79 98 Venturi Mask 55 03/17/17 07:55 96 Venturi Mask 14.0 55 03/17/17 03:59 96.0 67 20 116/79 90 Nasal Cannula 14.0 03/17/17 00:00 97.2 119 20 144/96 96 Venturi Mask 03/16/17 20:08 93 Venturi Mask 14.0 55 03/16/17 20:08 Venturi Mask 14.0 55 03/16/17 20:00 97.3 79 20 118/58 Venturi Mask Intake and Output 03/17/17 03/18/17 19:00 07:00 # Voids 1 Height (Feet): 5 Height (Inches): 3.00 Weight (Pounds): 122 Mike Magana M.D. Mar 17, 2017 19:16
--- NOTE | 2017-03-17 19:18 | General Progress Note ---
Assessment/Plan Status: progressing Assessment/Plan Agitation encephalopathy noncompliance lacks capacity seroquel 25mg qhs Subjective Date patient seen: Mar 17, 2017 Allergies: Coded Allergies: ASPIRIN (Verified Allergy, Unknown, 03/10/17) IBUPROFEN (Unverified Allergy, Unknown, 03/10/17) Subjective the pt is on continues bipap. the pt is the same Objective Last 24 Hour Vital Signs Date Time Temp Pulse Resp B/P (MAP) Pulse Ox O2 Delivery O2 Flow Rate FiO2 03/17/17 12:00 96.3 114 18 111/70 100 Venturi Mask 55 03/17/17 08:50 Venturi Mask 14.0 55 03/17/17 08:00 97.2 97 17 141/79 98 Venturi Mask 55 03/17/17 07:55 96 Venturi Mask 14.0 55 03/17/17 03:59 96.0 67 20 116/79 90 Nasal Cannula 14.0 03/17/17 00:00 97.2 119 20 144/96 96 Venturi Mask 03/16/17 20:08 93 Venturi Mask 14.0 55 03/16/17 20:08 Venturi Mask 14.0 55 03/16/17 20:00 97.3 79 20 118/58 Venturi Mask Intake and Output 03/17/17 03/18/17 19:00 07:00 # Voids 1 Height (Feet): 5 Height (Inches): 3.00 Weight (Pounds): 122 General Appearance: no apparent distress, alert, confused Neurologic: alert, disoriented, depressed affect Mike Magana M.D. Mar 17, 2017 19:18
--- NOTE | 2017-03-18 16:56 | Discharge Summary ---
Discharge Summary Hospital Course Date of Admission Mar 10, 2017 at 02:25 Date of Discharge Mar 17, 2017 at 14:45 Admitting Diagnosis Sepsis, Pneumonia HPI Pedro Amador is a 86 year old female who was admitted on Mar 10, 2017 at 02:25 for Sepsis,Pneumonia Hospital Course [id number] Discharge Discharge Disposition Patient was discharged to SNF/Subacute Facility Discharge Diagnoses: Enedelia Tomlin NP Mar 18, 2017 16:56
--- NOTE | 2017-03-18 16:56 | Discharge Summary ---
Discharge Summary Hospital Course Date of Admission Mar 10, 2017 at 02:25 Date of Discharge Mar 17, 2017 at 14:45 Admitting Diagnosis Sepsis, Pneumonia HPI Pedro Amador is a 86 year old female who was admitted on Mar 10, 2017 at 02:25 for Sepsis,Pneumonia Hospital Course [id number] Discharge Discharge Disposition Patient was discharged to SNF/Subacute Facility Discharge Diagnoses: Enedelia Tomlin NP Mar 18, 2017 16:56
--- NOTE | 2017-03-18 16:56 | Discharge Summary ---
Discharge Summary Hospital Course Date of Admission Mar 10, 2017 at 02:25 Date of Discharge Mar 17, 2017 at 14:45 Admitting Diagnosis Sepsis, Pneumonia HPI Pedro Amador is a 86 year old female who was admitted on Mar 10, 2017 at 02:25 for Sepsis,Pneumonia Hospital Course [id number] Discharge Discharge Disposition Patient was discharged to SNF/Subacute Facility Discharge Diagnoses: Enedelia Tomlin NP Mar 18, 2017 16:56
--- NOTE | 2017-03-19 08:17 | Discharge Summary 2 SIG ---
DATE OF ADMISSION: 03/10/2017 DATE OF DISCHARGE: 03/17/2017 CONSULTANTS: 1. Mike Magana M.D. 2. Jai Workman M.D. 3. Markos Lakhani M.D. BRIEF HOSPITAL COURSE: The patient is an 86-year-old female with a history of diastolic congestive heart failure, peripheral vascular disease, hypertension, and dementia, who was recently hospitalized at [facility] for altered level of consciousness and sepsis and was subsequently transferred to [facility]. She was brought to ED from nursing home facility due to complaints of respiratory distress. Per nursing staff records, she was given water and candy by her roommate and afterwards became short of breath. There was no fever and no chills. No nausea, no vomiting, and no diarrhea. On evaluation at ED, the patient was in respiratory distress and required BiPAP. She was given IV fluids. Blood work showed marked leukocytosis, WBC of 21, and troponin was in the indeterminate zone. She was given aspirin. Chest x-ray showed bilateral infiltrates, right greater than left with possible pleural effusion. EKG was in sinus tachycardia. She was admitted for sepsis and was started on vancomycin and cefepime. ProBNP was 1800. Troponin 0.453. Echocardiogram showed left ventricular ejection fraction to be at least mildly decreased to 40% EF. She has a history of atrial fibrillation with mild mitral regurgitation and mild diastolic relaxation abnormality. She was continued on nebulizer treatments and was given Lasix for diuresis. Venous duplex of lower extremity was negative for DVT. She did not pass swallow evaluation and NG tube was started. She underwent psychiatric evaluation and was assessed to lack the capacity to make medical decisions. She was given Seroquel for agitation. She continued to have severe leukocytosis at the range of upper 20s and 30s. The PICC line was inserted on 03/11/2017. Urine Legionella was negative. She completed intravenous vancomycin and cefepime for seven days. She was given Levaquin. Sputum culture showed normal sherlyn. She was recommended to undergo CT of the abdomen, however, the patient's family refused and wants the patient to be placed on DNR and hospice care. The DPOA did not want any artificial feeding. For quality of life, she was recommended oral gratification with pureed honey thick liquids with strict aspiration precaution. She was eventually discharged to SNF. FINAL DIAGNOSES: 1. Acute respiratory failure with hypoxia. 2. Pulmonary edema. 3. Acute diastolic systolic congestive heart failure. 4. Pneumonia. 5. High risk aspiration. 6. Alzheimer's dementia. 7. Agitation. 8. Encephalopathy. 9. Noncompliance. 10. Possible bacteremia with persistent leukocytosis. 11. Gastroesophageal reflux disease. 12. Osteoporosis. 13. Gout. 14. Multiple deep tissue injury, present on admission. DISPOSITION: The patient was discharged to [facility]. DISCHARGE MEDICATIONS: Refer to medication list. Nishi Soriano M.D. I have been assigned to dictate discharge summary on this account and I was not involved in the patient's management. Enedelia Tomlin N.P. DR: JANET JOB#: [id number] CC: [id number]
== END 2017-03-17 14:45 | DRG 871 ==
LOC: EDBD 01:12 → EMR 01:28 → 2W 02:25 → EDBEDREQ 02:33 → 4E 03-15 16:30
PROC: 5A09457 Assistance with Respiratory Ventilation, 24-96 Consecutive Hours, Continuous Positive Airway Pressure (ICD-10-PCS; principal; 2017-03-10)
PROC: 02HV33Z Insertion of Infusion Device into Superior Vena Cava, Percutaneous Approach (ICD-10-PCS; 2017-03-11)
DX: A41.9 Sepsis, unspecified organism (principal); J18.9 Pneumonia, unspecified organism; J96.01 Acute respiratory failure with hypoxia; G93.40 Encephalopathy, unspecified; L89.150 Pressure ulcer of sacral region, unstageable; L89.100 Pressure ulcer of unspecified part of back, unstageable; I50.41 Acute combined systolic (congestive) and diastolic (congestive) heart failure; I42.9 Cardiomyopathy, unspecified; G30.9 Alzheimer's disease, unspecified; L89.810 Pressure ulcer of head, unstageable; F02.80 Dementia in other diseases classified elsewhere, unspecified severity, without behavioral disturbance, psychotic disturbance, mood disturbance, and anxiety; I73.9 Peripheral vascular disease, unspecified; Z51.5 Encounter for palliative care; I10 Essential (primary) hypertension; K21.9 Gastro-esophageal reflux disease without esophagitis; M81.0 Age-related osteoporosis without current pathological fracture; Z88.6 Allergy status to analgesic agent; Z91.19 Patient's noncompliance with other medical treatment and regimen; R45.1 Restlessness and agitation; Z66 Do not resuscitate; M10.9 Gout, unspecified
CPT/HCPCS: 36415; 36569; 36600; 51702; 71010; 76937; 80048; 80053; 80069; 80202; 81003; 82164; 82550; 82553; 82803; 83605; 83735; 83880; 84484; 85007; 85025; 85610; 85730; 86713; 87040; 87070; 87081; 87205; 93005; 93306; 93970; 94640; 94660; 94664; 94760